=== PATIENT | female | born 1945 | race Caucasian/White ===

== ENCOUNTER 2016-10-05 09:47 | Emergency (ER) | payer MEDICARE, OTHER ==
--- NOTE | 2016-10-05 10:18 | ERPHSYRPT ---
- History of Present Illness Time Seen by Provider: 10/05/16 10:10 Source: patient, family Exam Limitations: no limitations Patient Subjective Stated Complaint: PT STATES THAT SHE WOKE THIS AM TO BAGINAL BLEEDING-BRIGHT RED IN NATURE-PT DENIES PAIN-DENIES DIFFICULTY WITH URINATION OR BOWELS-DENIES ABD PAIN-PT HAS HAD FULL HYSTERECTOMY Triage Nursing Assessment: PT PALE WARM ET DRY-A & O X 3-DENIES DIZZINESS-RESP NONLABORED-ABD SOFT ET NONTENDER TO PALP-BOWEL SOUNDS PRESENT Physician History: patient felt well when got up this am; went to the bathroom and noted a large amount of red blood in the stool; no pain; no prior hx; otherwise healthy; no other complaints; no blood in BM or urine to her knowledge Timing/Duration: today, hour(s) (1) Activites at Onset: other (using the bathroom) Quality: other (none) Onset Location: other (none) Pain Radiation: none Severity of Pain-Max: none Severity of Pain-Current: none Prior abdominal problems: none Sexual intercourse history: non-contributory Modifying Factors: Improves With: urinating Associated Symptoms: denies symptoms Allergies/Adverse Reactions: No Known Drug Allergies Allergy (Verified 10/05/16 10:04) Home Medications: Aspirin EC 81 mg [Ecotrin 81 mg] 81 mg PO DAILY 10/09/12 [History] Insulin Glargine,Hum.rec.anlog [Lantus] 12 unit SQ BID 10/09/12 [History] Metformin HCl 500 mg [Glucophage 500 MG] 500 mg PO BID 10/09/12 [History] Naproxen 500 mg PO BID 10/09/12 [History] Potassium Chloride 10 Meq Tab* [Klor Con 10 MEQ] 10 meq PO BID 10/09/12 [History ] Pravastatin Sodium 20 mg PO HS 10/09/12 [History] Glimepiride 4 mg [Amaryl 4 mg] 4 mg PO DAILY 11/12/14 [History] Hydrochlorothiazide 25 mg [hydroDIURIL 25 MG] 25 mg PO DAILY 11/12/14 [ History] Omeprazole 20 MG [Prilosec 20 mg] 20 mg PO DAILY 11/12/14 [History] Insulin Regular, Human [Novolin R] 10 unit IJ UD 09/20/15 [History] Hx Tetanus, Diphtheria Vaccination/Date Given: Yes Hx Influenza Vaccination/Date Given: Yes Hx Pneumococcal Vaccination/Date Given: Yes - Review of Systems Constitutional: No Symptoms Eyes: No Symptoms Ears, Nose, & Throat: No Symptoms Respiratory: No Cough, No Dyspnea, No Wheezing Cardiac: No Chest Pain, No Palpitations, No Syncope Abdominal/Gastrointestinal: No Abdominal Pain, No Nausea, No Vomiting, No Diarrhea, No Hematemesis, No Hematochezia, No Melena Genitourinary Symptoms: Vaginal Bleeding, No Dysuria, No Frequency, No Hematuria , No Urgency, No Urinary Retention, No Flank Pain Musculoskeletal: No Symptoms Skin: No Symptoms Neurological: No Symptoms Psychological: No Symptoms Endocrine: No Symptoms Hematologic/Lymphatic: No Symptoms Immunological/Allergic: No Symptoms - Past Medical History Pertinent Past Medical History: Yes Neurological History: No Pertinent History ENT History: No Pertinent History Cardiac History: No Pertinent History Respiratory History: No Pertinent History Endocrine Medical History: Diabetes Type II Musculoskeletal History: No Pertinent History GI Medical History: GERD History: No Pertinent History Psycho-Social History: No Pertinent History Female Reproductive Disorders: Abnormal Uterine Bleeding, Breast Cancer, Cervical Cancer, Other Other Medical History: BREAST CA, UTERINE CA - Past Surgical History Past Surgical History: Yes Neuro Surgical History: No Pertinent History Cardiac: No Pertinent History Respiratory: No Pertinent History Gastrointestinal: No Pertinent History, Hernia Repair Genitourinary: No Pertinent History Musculoskeletal: Orthopedic Surgery Female Surgical History: Lumpectomy, Hysterectomy Other Surgical History: tonsils as a child,left knee replacement. skin cancer removal to face, left thigh and back - Social History Smoking Status: Never smoker Exposure to second hand smoke: No Alcohol Use: None Drug Use: none Patient Lives Alone: No Significant Family History: no pertinent family hx - Nursing Vital Signs Nursing Vital Signs: Initial Vital Signs Temperature 98.6 F Temperature Source Oral Pulse Rate 79 Respiratory Rate 20 Blood Pressure [Right Arm] 175/76 Pain Intensity 0 - Physical Exam General Appearance: mild distress, alert, obese Eye Exam: PERRL/EOMI, eyes nml inspection, No photophobia Ears, Nose, Throat Exam: normal ENT inspection, TMs normal, pharynx normal, moist mucous membranes Neck Exam: normal inspection, non-tender, supple, full range of motion, No meningismus, No JVD Respiratory Exam: normal breath sounds, lungs clear, airway intact, No chest tenderness, No respiratory distress, No crackles/rales, No rhonchi Cardiovascular Exam: regular rate/rhythm, normal heart sounds, normal peripheral pulses, capillary refill 2-3 sec, No murmur Gastrointestinal/Abdomen Exam: soft, normal bowel sounds, No tenderness, No mass , No guarding, No rebound, No organomegaly Pelvic Exam: normal external exam, other (no blood in the vaginal vault; one small area of cuff on left that was slightly inflammed and may have been bleeding source; no bleeding now; no masses), No adnexal mass, No mass, No cervical motion tenderness, No vaginal bleeding Rectal Exam: normal exam, normal rectal tone, other (soft stool present), No mass, No hemorrhoids, No blood Back Exam: normal inspection, normal range of motion, No CVA tenderness Extremity Exam: normal inspection, normal range of motion, pedal edema, No pelvis stable Neurologic Exam: alert, oriented x 3, cooperative, ground control approach technician II-XII nml as tested, normal mood/affect, nml cerebellar function, nml station & gait Skin Exam: normal color, warm, dry, No rash, No petechiae, No cyanosis SpO2 Interpretation: normal SpO2: 97 Oxygen Delivery: Room Air - Course Nursing assessment & vital signs reviewed: Yes Ordered Tests: Active Orders 24 hr Category Date Time Status Cath for Specimen-Straight STAT Care 10/05/16 10:13 Active IV Insertion STAT Care 10/05/16 10:13 Active NPO (ED) STAT Care 10/05/16 10:13 Active Pelvic Exam Assist STAT Care 10/05/16 10:13 Active Re-Check Vital Signs STAT Care 10/05/16 10:13 Active BMP Stat Lab 10/05/16 10:13 Completed CBC W DIFF Stat Lab 10/05/16 10:13 Completed Occult Blood,Stool Other Stat Lab 10/05/16 10:57 Completed PROTIME WITH INR Stat Lab 10/05/16 10:13 Completed UA W/ MICROSCOPIC Stat Lab 10/05/16 10:58 Completed Lab/Rad Data: Laboratory Result Diagrams 10/05/16 10:13 10/05/16 10:13 Laboratory Results 10/05/16 10/05/16 10/05/16 Range/Units 10:58 10:57 10:13 WBC (4.0-10.5) K/mm3 RBC (4.1-5.4) M/mm3 Hgb (12.0-16.0) gm/dl Hct (35-47) % MCV (78-100) fl MCH (26-32) pg MCHC (32-36) g/dl RDW (11.5-14.0) % Plt Count (150-450) K/mm3 MPV (6-9.5) fl Gran % (36.0-66.0) % Lymphocytes % (24.0-44.0) % Monocytes % (0.0-12.0) % Eosinophils % (0.00-5.0) % Basophils % (0.0-0.4) % Basophils # (0-0.4) INR 1.06 (0.8-3.0) Sodium (136-145) mEq/L Potassium (3.5-5.1) mEq/L Chloride (98-107) mEq/L Carbon Dioxide (21-32) mEq/L Anion Gap (5-15) MEQ/L BUN (9-20) mg/dL Creatinine (0.55-1.30) mg/dl Estimated GFR ML/MIN Glucose (70-110) MG/DL Calcium (8.5-10.1) mg/dL Ur Collection Type CATH Urine Color YELLOW (YELLOW) Urine Appearance CLEAR (CLEAR) Urine pH 5.0 (5-6) Ur Specific [place] 1.015 (1.005-1.025) Urine Protein NEGATIVE (Negative) Urine Glucose (UA) NEGATIVE (NEGATIVE) mg/dL Urine Ketones NEGATIVE (NEGATIVE) Urine Nitrite NEGATIVE (NEGATIVE) Urine Bilirubin NEGATIVE (NEGATIVE) Urine Urobilinogen 1 (0-1) mg/dL Urine WBC (Auto) NEGATIVE (NEGATIVE) Urine RBC (Auto) TRACE HEMOLYZED (0-5) Malvin/ul Urine Microscopic RBC 0-2 (0-2) /HPF Urine Microscopic WBC 0-2 (0-5) /HPF Ur Epithelial Cells FEW (FEW) /HPF Urine Bacteria FEW (NEGATIVE) /HPF Stool Occult Blood NEGATIVE (Negative) Specimen Received 10/05 109910/05/16 10/05/16 Range/Units 10:13 10:13 WBC 6.4 (4.0-10.5) K/mm3 RBC 4.49 (4.1-5.4) M/mm3 Hgb 12.4 (12.0-16.0) gm/dl Hct 38.7 (35-47) % MCV 86.2 (78-100) fl MCH 27.6 (26-32) pg MCHC 32.0 (32-36) g/dl RDW 14.9 H (11.5-14.0) % Plt Count 130 L (150-450) K/mm3 MPV 13.3 H (6-9.5) fl Gran % 65.6 (36.0-66.0) % Lymphocytes % 22.6 L (24.0-44.0) % Monocytes % 6.3 (0.0-12.0) % Eosinophils % 4.9 (0.00-5.0) % Basophils % 0.6 (0.0-0.4) % Basophils # 0.04 (0-0.4) INR (0.8-3.0) Sodium 140 (136-145) mEq/L Potassium 4.0 (3.5-5.1) mEq/L Chloride 102 (98-107) mEq/L Carbon Dioxide 24.7 (21-32) mEq/L Anion Gap 16.9 H (5-15) MEQ/L BUN 26 H (9-20) mg/dL Creatinine 1.16 (0.55-1.30) mg/dl Estimated GFR 49 ML/MIN Glucose 142 H (70-110) MG/DL Calcium 8.9 (8.5-10.1) mg/dL Ur Collection Type Urine Color (YELLOW) Urine Appearance (CLEAR) Urine pH (5-6) Ur Specific [place] (1.005-1.025) Urine Protein (Negative) Urine Glucose (UA) (NEGATIVE) mg/dL Urine Ketones (NEGATIVE) Urine Nitrite (NEGATIVE) Urine Bilirubin (NEGATIVE) Urine Urobilinogen (0-1) mg/dL Urine WBC (Auto) (NEGATIVE) Urine RBC (Auto) (0-5) Malvin/ul Urine Microscopic RBC (0-2) /HPF Urine Microscopic WBC (0-5) /HPF Ur Epithelial Cells (FEW) /HPF Urine Bacteria (NEGATIVE) /HPF Stool Occult Blood (Negative) Specimen Received reviewed - Progress Progress: improved, re-examined Air Movement: good Progress Note: 10/05/16 10:52 pelvic and rectal exam did not reveal bleeding source; cath urine neg for gross blood; labs pending; family at bedside 10/05/16 10:59 patient tolerated pelvic ok; cbc and lyts and INR wnl 10/05/16 11:16 stool hem neg; cath urine clear;no gross blood; patient rechecked and no new bleeding; Dr Gomez, her IGNITION EXPERT doctor consulted adn will see in follow up next week; patient and family notified of results and treatment plan; instructions given; other labs ok Blood Culture(s) Obtained: No Antibiotics given: No Discussed with Dr.: Other (Dr Louis Gomez, senior it engineer consulted and will see in the office next week) Will see patient in: office Counseled pt/family regarding: lab results, diagnosis, need for follow-up - Departure Time of Disposition: 11:18 Departure Disposition: Home Clinical Impression: Vaginal bleeding, abnormal Condition: Stable Critical Care Time: No Referrals: FRANNIE CAMPOVERDE [Primary Care Provider] - Additional Instructions: continue home meds; follow up Dr Louis Goemz in office next week for reheck Follow-up with family doctor as directed. Call for appointment. Return if any problems. If you smoke please stop. Call or follow up with your family doctor for assistance if you need it to stop. Please wear your seatbelt when driving. Have a nice day. Thank you for allowing us to participate in your care today. :o) Dr Geraldo Roberts
[2016-10-05 10:32] LABS: BASOPHIL % 0.6 % (0.0-0.4); Eosinophil % 4.9 % (0.00-5.0); Granulocytes % 65.6 % (36.0-66.0); Lymphocytes % 22.6 % (24.0-44.0); Mean Cell Volume 86.2 fl (78-100); Mean Corpuscular Hemoglobin 27.6 pg (26-32); Mean Platelet Volume 13.3 fl (6-9.5); Monocytes % 6.3 % (0.0-12.0); Platelet Count 130 K/mm3 (150-450); Red Blood Count 4.49 M/mm3 (4.1-5.4); Red Cell Distribution Width 14.9 % (11.5-14.0); White Blood Count 6.4 K/mm3 (4.0-10.5)
[2016-10-05 10:43] LABS: INR 1.06 (0.8-3.0); PROTIME 11.8 SECONDS (9.95-12.35)
[2016-10-05 10:44] LABS: ANION GAP 16.9 MEQ/L (5-15); Carbon Dioxide 24.7 mEq/L (21-32)
[2016-10-05 11:07] VITALS: BP 175/76; PULSE 79
[2016-10-05 11:12] LABS: COMPLETE URINE MICROSCOPIC? YES; Collection Type CATH
[2016-10-05 11:14] LABS: Bacteria FEW /HPF (NEGATIVE); Epithelial Cells FEW /HPF (FEW); WBC 0-2 /HPF (0-5)
[2016-10-05 11:20] VITALS: O2SAT 97
== END 2016-10-05 11:28 | disposition home or self-care (01) ==
LOC: ED 09:47
DX: N93.9 Abnormal uterine and vaginal bleeding, unspecified (principal); E11.9 Type 2 diabetes mellitus without complications; Z79.84 Long term (current) use of oral hypoglycemic drugs; Z79.4 Long term (current) use of insulin
CPT/HCPCS: 99284; 36000; 81000; 85610; 36415; 82272; 85025; 80048; P9612; 99283

== ENCOUNTER 2016-12-21 13:35 | Emergency (ER) | payer MEDICARE, OTHER ==
[2016-12-21 14:00] VITALS: O2SAT 99
[2016-12-21] MEDS ORDERED: Zofran 4 MG/2 ML VIAL IV ONE (14:21)
--- NOTE | 2016-12-21 14:25 | ERPHSYRPT ---
- History of Present Illness Time Seen by Provider: 12/21/16 14:19 Source: patient Exam Limitations: no limitations Patient Subjective Stated Complaint: pt states this morning she became dizzy with nausea and vomiting. dizziness worse when she moves. Triage Nursing Assessment: pt flushed, warm, dry. pt pupils perrl. pt needed assistance transfering to bed. Physician History: The patient is a 71-year-old female with her family complaining of dizziness when she turns her head to the right. She woke up with this this morning. She has tried to do other things like take a shower to relieve this but it hasn't. She said when she turns her head to the right she feels like the room is spinning. She has been nauseated and has vomited once. She has never had anything like this before. Her past medical history is significant for breast cancer, hypertension, hyperlipidemia, diabetes, and arthritis. Timing/Duration: today Severity: severe Character of Deficits: other (dizziness) Deficits: no difficulties Baseline/Normal Cognition: alert oriented x 3 Current Cognition: alert oriented x 3 Baseline Gait: walks w/o assistance Associated Symptoms: vomiting, other (dizziness) Allergies/Adverse Reactions: No Known Drug Allergies Allergy (Verified 12/21/16 14:00) Home Medications: Aspirin EC 81 mg [Ecotrin 81 mg] 81 mg PO DAILY 10/09/12 [History] Metformin HCl 500 mg [Glucophage 500 MG] 500 mg PO BID 10/09/12 [History] Naproxen 500 mg PO BID 10/09/12 [History] Potassium Chloride 10 Meq Tab* [Klor Con 10 MEQ] 10 meq PO BID 10/09/12 [History ] Pravastatin Sodium 20 mg PO HS 10/09/12 [History] Glimepiride 4 mg [Amaryl 4 mg] 4 mg PO DAILY 11/12/14 [History] Hydrochlorothiazide 25 mg [hydroDIURIL 25 MG] 25 mg PO DAILY 11/12/14 [ History] Omeprazole 20 MG [Prilosec 20 mg] 20 mg PO DAILY 11/12/14 [History] Insulin Regular, Human [Novolin R] 10 unit IJ UD 09/20/15 [History] Hx Tetanus, Diphtheria Vaccination/Date Given: Yes (up to date) Hx Influenza Vaccination/Date Given: Yes Hx Pneumococcal Vaccination/Date Given: Yes Immunizations Up to Date: Yes - Review of Systems Constitutional: No Fever, No Chills Eyes: No Symptoms Ears, Nose, & Throat: No Symptoms Respiratory: No Cough, No Dyspnea Cardiac: No Chest Pain, No Edema, No Syncope Abdominal/Gastrointestinal: Nausea, Vomiting Genitourinary Symptoms: No Dysuria Musculoskeletal: No Back Pain, No Neck Pain Skin: No Rash Neurological: Dizziness Psychological: No Symptoms Endocrine: No Symptoms Hematologic/Lymphatic: No Symptoms Immunological/Allergic: No Symptoms All Other Systems: Reviewed and Negative - Past Medical History Pertinent Past Medical History: Yes Neurological History: No Pertinent History ENT History: No Pertinent History Cardiac History: No Pertinent History Respiratory History: No Pertinent History Endocrine Medical History: Diabetes Type II Musculoskeletal History: No Pertinent History GI Medical History: GERD History: No Pertinent History Psycho-Social History: No Pertinent History Female Reproductive Disorders: Abnormal Uterine Bleeding, Breast Cancer, Cervical Cancer, Other Other Medical History: BREAST CA, UTERINE CA - Past Surgical History Past Surgical History: Yes Neuro Surgical History: No Pertinent History Cardiac: No Pertinent History Respiratory: No Pertinent History Gastrointestinal: No Pertinent History, Hernia Repair Genitourinary: No Pertinent History Musculoskeletal: Orthopedic Surgery Female Surgical History: Lumpectomy, Hysterectomy Other Surgical History: tonsils as a child,left knee replacement. skin cancer removal to face, left thigh and back - Social History Smoking Status: Never smoker Exposure to second hand smoke: No Alcohol Use: None Drug Use: none Patient Lives Alone: No Significant Family History: no pertinent family hx - Nursing Vital Signs Nursing Vital Signs: Initial Vital Signs Temperature 98.3 F Temperature Source Oral Pulse Rate 68 Respiratory Rate 18 Blood Pressure [Right Arm] 170/78 Pain Intensity 0 - [place] Coma Scale Best Eye Response (Irina): (4) open spontaneously Best Verbal Response ([place]): (5) oriented Best Motor Response ([place]): (6) obeys commands Irina Total: 15 - Physical Exam General Appearance: mild distress Eye Exam: bilateral eye: normal inspection, other (With the patient sitting upright she has no nausea, the room is not spinning, and there is no nystagmus. Quickly moving the patient from a seated position to the supine position and having her quickly turn her head to the right, the patient experiences severe dizziness with mild horizontal nystagmus. Bringing the patient back to the upright position with the head straightforward, the dizziness resolves. The same maneuver from the upright seated position to prone but moving the head to the left does not reproduce any of the dizziness.) Ears, Nose, Throat Exam: normal ENT inspection, moist mucous membranes Neck Exam: normal inspection, non-tender, supple Respiratory: normal breath sounds, lungs clear, airway intact, No respiratory distress Cardiovascular: regular rate/rhythm, No edema Gastrointestinal: soft, No tenderness, No distention Pelvic Exam: not done Rectal Exam: not done Back Exam: normal inspection Extremity Exam: normal inspection, No pedal edema Mental Status: alert, oriented x 3 data steward Exam: tongue midline Coordination/Gait: normal finger to nose, normal gait Motor/Sensory: no motor deficit, no sensory deficit Skin Exam: normal color, warm, dry, No rash SpO2 Interpretation: normal SpO2: 99 Oxygen Delivery: Room Air - Course EKG Interpreted by Me: RATE, Sinus Rhythm, NORMAL AXIS, NORMAL INTERVALS, NORMAL QRS, NORMAL ST-T, Other (No change comared to EKG 08/22/15.) Ordered Tests: Active Orders 24 hr Category Date Time Status Cervical Collar Application STAT Care 12/21/16 15:11 Active EKG-ER Only STAT Care 12/21/16 14:24 Active IV Insertion STAT Care 12/21/16 14:22 Active BMP Stat Lab 12/21/16 14:22 Completed CBC W DIFF Stat Lab 12/21/16 14:22 Completed Medication Summary Discontinued Medications Generic Name Dose Route Start Last Admin Trade Name Elba PRN Reason Stop Dose Admin Sodium Chloride 500 mls @ 999 mls/hr 12/21/16 14:22 12/21/16 14:28 Sodium Chloride 0.9% 1000 Ml IV 12/21/16 14:52 999 mls/hr .Q31M STA Administration Sodium Chloride Confirm 12/21/16 14:27 Sodium Chloride 0.9% 1000 Ml Administered 12/21/16 14:28 Dose 1,000 mls @ ud .ROUTE .STK-MED ONE Ondansetron HCl 4 mg 12/21/16 14:21 12/21/16 14:28 Zofran 4 Mg/2 Ml Vial IV 12/21/16 14:22 4 mg STAT ONE Administration Ondansetron HCl Confirm 12/21/16 14:27 Zofran 4 Mg/2 Ml Vial Administered 12/21/16 14:28 Dose 4 mg .ROUTE .STK-MED ONE Lab/Rad Data: Laboratory Result Diagrams 12/21/16 14:22 12/21/16 14:22 Laboratory Results 12/21/16 12/21/16 Range/Units 14:22 14:22 WBC 5.6 (4.0-10.5) K/mm3 RBC 4.67 (4.1-5.4) M/mm3 Hgb 12.6 (12.0-16.0) gm/dl Hct 39.6 (35-47) % MCV 84.8 (78-100) fl MCH 27.0 (26-32) pg MCHC 31.8 L (32-36) g/dl RDW 14.5 H (11.5-14.0) % Plt Count 126 L (150-450) K/mm3 MPV 13.6 H (6-9.5) fl Gran % 69.5 H (36.0-66.0) % Lymphocytes % 19.2 L (24.0-44.0) % Monocytes % 5.2 (0.0-12.0) % Eosinophils % 5.4 H (0.00-5.0) % Basophils % 0.7 (0.0-0.4) % Basophils # 0.04 (0-0.4) Sodium 140 (136-145) mEq/L Potassium 4.5 (3.5-5.1) mEq/L Chloride 104 (98-107) mEq/L Carbon Dioxide 23.1 (21-32) mEq/L Anion Gap 17.1 H (5-15) MEQ/L BUN 24 H (9-20) mg/dL Creatinine 1.09 (0.55-1.30) mg/dl Estimated GFR 53 ML/MIN Glucose 130 H (70-110) MG/DL Calcium 9.3 (8.5-10.1) mg/dL - Progress Progress: improved Progress Note: 12/21/16 15:27 Physical therapy arrives and performs inappropriate maneuvers for BPPV. The patient now is feeling much better and has no dizziness. Counseled pt/family regarding: diagnosis - Departure Time of Disposition: 15:27 Departure Disposition: Home Clinical Impression: BPPV (benign paroxysmal positional vertigo) Condition: Stable Critical Care Time: No Additional Instructions: You had BPPV. This is benign paroxysmal positional vertigo. Physical therapy was able to do the appropriate maneuvers to alleviate the vertigo. Prescriptions: Ondansetron [Zofran Odt] 4 mg PO Q6HPRN PRN #10 tab.rapdis PRN Reason: Nausea/Vomiting
[2016-12-21] MEDS ORDERED: Sodium Chloride 0.9% 1000 ML 1,000 ML ONE (14:27)
[2016-12-21] MEDS ORDERED: Zofran 4 MG/2 ML VIAL ONE (14:27)
[2016-12-21 14:33] LABS: BASOPHIL % 0.7 % (0.0-0.4); Eosinophil % 5.4 % (0.00-5.0); Granulocytes % 69.5 % (36.0-66.0); Lymphocytes % 19.2 % (24.0-44.0); Mean Cell Volume 84.8 fl (78-100); Mean Platelet Volume 13.6 fl (6-9.5); Monocytes % 5.2 % (0.0-12.0); Platelet Count 126 K/mm3 (150-450); Red Blood Count 4.67 M/mm3 (4.1-5.4); Red Cell Distribution Width 14.5 % (11.5-14.0); White Blood Count 5.6 K/mm3 (4.0-10.5)
[2016-12-21 14:35] LABS: ANION GAP 17.1 MEQ/L (5-15); Carbon Dioxide 23.1 mEq/L (21-32); Potassium 4.5 mEq/L (3.5-5.1)
[2016-12-21 15:45] VITALS: BP 172/70; PULSE 74
== END 2016-12-21 15:46 | disposition home or self-care (01) ==
LOC: ED 13:35
DX: H81.10 Benign paroxysmal vertigo, unspecified ear (principal); R42 Dizziness and giddiness; R11.10 Vomiting, unspecified; E11.9 Type 2 diabetes mellitus without complications; Z79.4 Long term (current) use of insulin; Z79.82 Long term (current) use of aspirin; Z79.899 Other long term (current) drug therapy
CPT/HCPCS: 36000; 36415; 80048; 85025; 93005; 96360; 96374; 99285; J2405; L0120

== ENCOUNTER 2017-08-14 06:02 | Day surgery (SDC) | payer MEDICARE, OTHER ==
[~2017-08-14 06:02] MED LIST: Lactated Ringers 1,000 ML IV SCH
[2017-08-14] MEDS ORDERED: DIPRIVAN 200 MG/20 ML IV ONE (06:03)
[2017-08-14] MEDS ORDERED: Ketamine HCl 50 MG/ML IJ ONE (06:03)
--- NOTE | 2017-08-14 07:52 | OP ---
SURGERY DATE/TIME: 08/14/2017 0658 PREOPERATIVE DIAGNOSIS: Iron deficiency anemia. POSTOPERATIVE DIAGNOSIS: Moderate to severe gastritis. PROCEDURE: EGD. SURGEON: Salo Srinivasan M.D. ANESTHESIA: MAC by Anup Houser CRNA. ESTIMATED BLOOD LOSS: Minimal. SPECIMENS: Two cold forceps biopsies from greater curvature of the stomach from indistinct area of gastritis. DESCRIPTION OF PROCEDURE: After informed written consent was obtained, the patient was taken to the endoscopy suite. She underwent monitored anesthesia and a bite block was inserted. The endoscope was inserted into the posterior oropharynx and under direct visualization the esophagus was traversed. The esophageal mucosa appeared normal free of lesions or defects. The gastroesophageal junction likewise appeared normal upon entering the stomach. The stomach had a normal rugated gastric mucosa but there was indistinct moderate to severe gastritis throughout the entire greater curvature of the stomach with no obvious ulceration or focal area of involvement. The gastric antrum was inspected and was free of any overt ulcerations or defects. The pylorus was traversed and the first and second portions of the duodenum were within normal limits. Two cold forceps biopsies were taken from automotive sales representative areas of the greater curvature of the stomach. There was minimal bleeding following removal of these two biopsies. The scope was removed and upon withdrawal no other lesions were encountered. I have advised the patient to discontinue taking aspirin and naproxen at this time as these are both on her current medicine list. I have also increased her omeprazole to 20 mg twice daily while we await biopsy results and she will follow up in the office.
[2017-08-14 08:11] VITALS: O2SAT 98
[2017-08-14 08:27] VITALS: BP 171/71; PULSE 76
== END 2017-08-14 08:37 | disposition home or self-care (01) ==
LOC: SDC 06:02 → EDSTATUS 13:07
PROVIDERS: ATTEND Family Medicine
PROC: 0DB68ZX Excision of Stomach, Via Natural or Artificial Opening Endoscopic, Diagnostic (ICD-10-PCS; principal; 2017-08-14)
DX: K29.70 Gastritis, unspecified, without bleeding (principal); K21.9 Gastro-esophageal reflux disease without esophagitis; E11.9 Type 2 diabetes mellitus without complications; Z79.4 Long term (current) use of insulin; Z79.899 Other long term (current) drug therapy
CPT/HCPCS: 00740; 88305; 99100; J2704

== ENCOUNTER 2019-01-24 20:09 | Inpatient (IN) | payer MEDICARE, OTHER ==
[2019-01-24] MEDS ORDERED: PROTONIX 40 MG IV IV ONE ×2 (20:50→21:50)
[2019-01-24] MEDS ORDERED: MORPHINE SULFATE 4 MG INJ IV ONE (20:50)
[2019-01-24] MEDS ORDERED: Zofran 4 MG/2 ML VIAL IV ONE (20:50)
[2019-01-24] MEDS ORDERED: Pepcid 20 MG VIAL IV ONE ×2 (20:50→21:50)
--- NOTE | 2019-01-24 20:50 | ERPHSYRPT ---
- History of Present Illness Time Seen by Provider: 01/24/19 20:47 Historian: patient, family Exam Limitations: no limitations Patient Subjective Stated Complaint: pt is alert and oriented. pt comes in via wheelchair. pt states that she vomited earlier today and has severe mid- abdominal pain. pt is tender with palpation in her mid-abdomen. pt is firm in her mid-abdomen. pt states that she has a hernia in that spot. pt states that she has vomited just the once. pt bp is 219/115. pt denies dizzines, headache, blurry vision. pt skin is pwd. Triage Nursing Assessment: see above Physician History: pt with sudden onset of mid abd pain and prior ventral hernias repaired there , but no hernia felt on exam today - just tender; some vomiting Timing/Duration: today Activities at Onset: none Quality: sharpness, stabbing, throbbing Abdominal Pain Onset Location: other (mid abd) Pain Radiation: no radiation Severity of Pain-Max: moderate Severity of Pain-Current: moderate Modifying Factors: Improves With: nothing Associated Symptoms: nausea, vomiting Previous symptoms: no prior history Allergies/Adverse Reactions: No Known Drug Allergies Allergy (Verified 08/14/17 06:23) Home Medications: Metformin HCl 500 mg [Glucophage 500 MG] 500 mg PO BID 10/09/12 [History] Potassium Chloride 10 Meq Tab* [Klor Con 10 MEQ] 10 meq PO BID 10/09/12 [ History] Pravastatin Sodium 20 mg PO HS 10/09/12 [History] Hydrochlorothiazide 25 mg [hydroDIURIL 25 MG] 25 mg PO DAILY 11/12/14 [ History] Anastrozole [Arimidex] 1 mg PO HS 08/08/17 [History] Cyanocobalamin (Vitamin B-12) [Vitamin B-12] 1,000 mcg IM DIRECTIONS UNKNOWN 03/18 [History] Ferrous Sulfate [Iron] 325 mg PO DAILY 08/08/17 [History] Lisinopril 20 mg [Zestril 20 MG] 20 mg PO DAILY 08/08/17 [History] Hx Tetanus, Diphtheria Vaccination/Date Given: Yes (up to date) Hx Influenza Vaccination/Date Given: Yes Hx Pneumococcal Vaccination/Date Given: Yes Immunizations Up to Date: Yes - Review of Systems Constitutional: No Fever, No Chills Eyes: No Symptoms Ears, Nose, & Throat: No Symptoms Respiratory: No Cough, No Dyspnea Cardiac: No Chest Pain, No Edema, No Syncope Abdominal/Gastrointestinal: Abdominal Pain, Nausea, Vomiting, No Diarrhea Genitourinary Symptoms: No Dysuria Musculoskeletal: No Back Pain, No Neck Pain Skin: No Rash Neurological: No Dizziness, No Focal Weakness, No Sensory Changes Psychological: No Symptoms Endocrine: No Symptoms All Other Systems: Reviewed and Negative - Past Medical History Pertinent Past Medical History: Yes Neurological History: No Pertinent History ENT History: No Pertinent History Cardiac History: Hypertension Respiratory History: No Pertinent History Endocrine Medical History: Diabetes Type II Musculoskeletal History: No Pertinent History GI Medical History: GERD History: No Pertinent History Psycho-Social History: No Pertinent History Female Reproductive Disorders: Abnormal Uterine Bleeding, Breast Cancer, Cervical Cancer, Other Other Medical History: BREAST CA, UTERINE CA - Past Surgical History Past Surgical History: Yes Neuro Surgical History: No Pertinent History Cardiac: No Pertinent History Respiratory: No Pertinent History Gastrointestinal: No Pertinent History, Hernia Repair Genitourinary: No Pertinent History Musculoskeletal: Orthopedic Surgery Female Surgical History: Lumpectomy, Hysterectomy Other Surgical History: tonsils as a child, left and right knee replacement. skin cancer removal to face, left thigh and back,left breast lumpectomy w/ radiation following, uterine cancer w/hyster., Confirms no lymph nodes removed - Social History Smoking Status: Never smoker Exposure to second hand smoke: No Alcohol Use: None Drug Use: none Patient Lives Alone: No Significant Family History: no pertinent family hx - Female History Hx Now: No - Nursing Vital Signs Nursing Vital Signs: Initial Vital Signs Temperature 98.2 F 01/24/19 20:29 Pulse Rate 80 01/24/19 20:29 Respiratory Rate 16 01/24/19 20:29 Blood Pressure 219/115 01/24/19 20:29 O2 Sat by Pulse Oximetry 98 01/24/19 20:29 Pain Scale Pain Intensity 9 - Physical Exam General Appearance: no apparent distress, alert Eye Exam: PERRL/EOMI, eyes nml inspection Ears, Nose, Throat Exam: normal ENT inspection, pharynx normal, moist mucous membranes Neck Exam: normal inspection, non-tender, supple, full range of motion Respiratory Exam: normal breath sounds, lungs clear, No respiratory distress Cardiovascular Exam: regular rate/rhythm, normal heart sounds Gastrointestinal/Abdomen Exam: soft, No tenderness, No mass Pelvic Exam: deferred Rectal Exam: deferred Back Exam: normal inspection, normal range of motion, No CVA tenderness, No vertebral tenderness Extremity Exam: normal inspection, normal range of motion, pelvis stable Neurologic Exam: alert, oriented x 3, cooperative, normal mood/affect, nml cerebellar function, sensation nml, No motor deficits Skin Exam: normal color, warm, dry SpO2 Interpretation: normal SpO2: 98 O2 Delivery: Room Air - Course Nursing assessment & vital signs reviewed: Yes EKG Interpreted by Me: Sinus Rhythm, NORMAL AXIS, Non-specific ST Changes - CT Exams Abdomen/Pelvis CT Interpretation: Discussed w/radiologist, Tele-radiologist Report, Other ( dilated bowel and hernias not incarcerated but concern for richters) Ordered Tests: Active Orders 24 hr Category Date Time Status EKG-ER Only STAT Care 01/24/19 20:50 Active IV Insertion STAT Care 01/24/19 20:50 Active NPO (ED) STAT Care 01/24/19 20:50 Active ABDOMEN AND PELVIS W/0 CONTRAS [CT] Stat Exams 01/24/19 20:50 Taken AMYLASE Stat Lab 01/24/19 21:01 Completed CBC W DIFF Stat Lab 01/24/19 21:01 Completed CMP Stat Lab 01/24/19 21:01 Completed LIPASE Stat Lab 01/24/19 21:01 Completed Lactic Acid Stat Lab 01/24/19 21:42 Completed Lactic Acid Stat Lab 01/24/19 23:48 Ordered TROPONIN Q3H Lab 01/24/19 21:01 Completed TROPONIN Q3H Lab 01/25/19 00:00 Ordered TROPONIN Q3H Lab 01/25/19 03:00 Ordered TROPONIN Q3H Lab 01/25/19 06:00 Ordered TROPONIN Q3H Lab 01/25/19 09:00 Ordered UA W/RFX UR CULTURE Stat Lab 01/24/19 23:05 Completed Medication Summary Generic Name Dose Route Start Last Admin Trade Name Freq PRN Reason Stop Dose Admin Sodium Chloride 1,000 mls @ 100 mls/hr 01/24/19 21:00 01/24/19 21:57 Sodium Chloride 0.9% 1000 Ml IV 02/23/19 20:59 100 mls/hr .Q10H LEIDY Administration Discontinued Medications Generic Name Dose Route Start Last Admin Trade Name Freq PRN Reason Stop Dose Admin Famotidine 20 mg 01/24/19 20:50 01/24/19 21:52 Pepcid 20 Mg Vial IV 01/24/19 20:51 20 mg STAT ONE Administration Famotidine Confirm 01/24/19 21:50 Pepcid 20 Mg Vial Administered 01/24/19 21:51 Dose 20 mg IV .STK-MED ONE Hydromorphone HCl 1 mg 01/24/19 23:53 Hydromorphone 1 Mg/Ml Ampule IV 01/24/19 23:54 STAT ONE Hydromorphone HCl Confirm 01/24/19 23:56 Hydromorphone 1 Mg/Ml Ampule Administered 01/24/19 23:57 Dose 1 mg .ROUTE .STK-MED ONE Morphine Sulfate 4 mg 01/24/19 20:50 01/24/19 21:53 Morphine Sulfate 4 Mg Inj IV 01/24/19 20:51 4 mg STAT ONE Administration Morphine Sulfate Confirm 01/24/19 21:50 Morphine Sulfate 4 Mg Inj Administered 01/24/19 21:51 Dose 4 mg .ROUTE .STK-MED ONE Ondansetron HCl 4 mg 01/24/19 20:50 01/24/19 21:52 Zofran 4 Mg/2 Ml Vial IV 01/24/19 20:51 4 mg STAT ONE Administration Ondansetron HCl Confirm 01/24/19 21:50 Zofran 4 Mg/2 Ml Vial Administered 01/24/19 21:51 Dose 4 mg .ROUTE .STK-MED ONE Ondansetron HCl Confirm 01/24/19 23:49 Zofran 4 Mg/2 Ml Vial Administered 01/24/19 23:50 Dose 4 mg .ROUTE .STK-MED ONE Ondansetron HCl 4 mg 01/25/19 00:00 Zofran 4 Mg/2 Ml Vial IV 01/25/19 00:01 STAT ONE Pantoprazole Sodium 40 mg 01/24/19 20:50 01/24/19 21:53 Protonix 40 Mg Iv IV 01/24/19 20:51 40 mg STAT ONE Administration Pantoprazole Sodium Confirm 01/24/19 21:50 Protonix 40 Mg Iv Administered 01/24/19 21:51 Dose 40 mg IV .STK-MED ONE Promethazine HCl 25 mg 01/24/19 23:54 Phenergan 25 Mg Inj IM 01/24/19 23:55 STAT ONE Promethazine HCl Confirm 01/24/19 23:59 Phenergan 25 Mg Inj Administered 01/25/19 00:00 Dose 25 mg .ROUTE .STK-MED ONE Lab/Rad Data: Laboratory Result Diagrams 01/24/19 21:01 01/24/19 21:01 Laboratory Results 01/24/19 01/24/19 01/24/19 Range/Units 23:05 21:42 21:01 WBC (4.0-10.5) K/mm3 RBC (4.1-5.4) M/mm3 Hgb (12.0-16.0) gm/dl Hct (35-47) % MCV (78-100) fl MCH (26-32) pg MCHC (32-36) g/dl RDW (11.5-14.0) % Plt Count (150-450) K/mm3 MPV (6-9.5) fl Gran % (36.0-66.0) % Eos # (Auto) (0-0.5) Absolute Lymphs (auto) (1.0-4.6) Absolute Monos (auto) (0.0-1.3) Lymphocytes % (24.0-44.0) % Monocytes % (0.0-12.0) % Eosinophils % (0.00-5.0) % Basophils % (0.0-0.4) % Absolute Granulocytes (1.4-6.9) Basophils # (0-0.4) Sodium (137-145) mmol/L Potassium (3.5-5.1) mmol/L Chloride (98-107) mmol/L Carbon Dioxide (22-30) mmol/L Anion Gap (5-15) MEQ/L BUN (7-17) mg/dL Creatinine (0.52-1.04) mg/dL Estimated GFR ML/MIN Glucose (74-106) mg/dL Lactic Acid 2.2 H (0.4-2.0) Calcium (8.4-10.2) mg/dL Total Bilirubin (0.2-1.3) mg/dL AST (14-36) U/L ALT (0-35) U/L Alkaline Phosphatase (38-126) U/L Troponin I < 0.012 (0.000-0.034) ng/mL Serum Total Protein (6.3-8.2) g/dL Albumin (3.5-5.0) g/dL Amylase (30-110) U/L Lipase (23-300) U/L Urine Color YELLOW (YELLOW) Urine Appearance SLIGHTLY CLOUDY (CLEAR) Urine pH 5.0 (5-6) Ur Specific [place] 1.015 (1.005-1.025) Urine Protein NEGATIVE (Negative) Urine Ketones TRACE (NEGATIVE) Urine Blood NEGATIVE (0-5) Malvin/ul Urine Nitrite NEGATIVE (NEGATIVE) Urine Bilirubin NEGATIVE (NEGATIVE) Urine Urobilinogen NEGATIVE (0-1) mg/dL Ur Leukocyte Esterase TRACE (NEGATIVE) Urine WBC (Auto) 0-2 (0-5) /HPF Urine RBC (Auto) NONE (0-2) /HPF U Epithel Cells (Auto) NONE (FEW) /HPF Urine Bacteria (Auto) NONE (NEGATIVE) /HPF Urine Mucus (Auto) SLIGHT (NEGATIVE) /HPF Urine Culture Reflexed NO (NO) Urine Glucose NEGATIVE (NEGATIVE) mg/dL 01/24/19 01/24/19 Range/Units 21:01 21:01 WBC 10.5 (4.0-10.5) K/mm3 RBC 5.00 (4.1-5.4) M/mm3 Hgb 14.0 (12.0-16.0) gm/dl Hct 43.2 (35-47) % MCV 86.4 (78-100) fl MCH 28.0 (26-32) pg MCHC 32.4 (32-36) g/dl RDW 14.2 H (11.5-14.0) % Plt Count 152 (150-450) K/mm3 MPV 13.1 H (6-9.5) fl Gran % 80.4 H (36.0-66.0) % Eos # (Auto) 0.34 (0-0.5) Absolute Lymphs (auto) 1.22 (1.0-4.6) Absolute Monos (auto) 0.47 (0.0-1.3) Lymphocytes % 11.6 L (24.0-44.0) % Monocytes % 4.5 (0.0-12.0) % Eosinophils % 3.2 (0.00-5.0) % Basophils % 0.3 (0.0-0.4) % Absolute Granulocytes 8.45 H (1.4-6.9) Basophils # 0.03 (0-0.4) Sodium 142 (137-145) mmol/L Potassium 4.2 (3.5-5.1) mmol/L Chloride 105 (98-107) mmol/L Carbon Dioxide 24 (22-30) mmol/L Anion Gap 18.4 H (5-15) MEQ/L BUN 27 H (7-17) mg/dL Creatinine 1.19 H (0.52-1.04) mg/dL Estimated GFR 47.3 ML/MIN Glucose 131 H (74-106) mg/dL Lactic Acid (0.4-2.0) Calcium 10.2 (8.4-10.2) mg/dL Total Bilirubin 0.50 (0.2-1.3) mg/dL AST 28 (14-36) U/L ALT 21 (0-35) U/L Alkaline Phosphatase 92 (38-126) U/L Troponin I (0.000-0.034) ng/mL Serum Total Protein 8.2 (6.3-8.2) g/dL Albumin 4.3 (3.5-5.0) g/dL Amylase 104 (30-110) U/L Lipase 119 (23-300) U/L Urine Color (YELLOW) Urine Appearance (CLEAR) Urine pH (5-6) Ur Specific [place] (1.005-1.025) Urine Protein (Negative) Urine Ketones (NEGATIVE) Urine Blood (0-5) Malvin/ul Urine Nitrite (NEGATIVE) Urine Bilirubin (NEGATIVE) Urine Urobilinogen (0-1) mg/dL Ur Leukocyte Esterase (NEGATIVE) Urine WBC (Auto) (0-5) /HPF Urine RBC (Auto) (0-2) /HPF U Epithel Cells (Auto) (FEW) /HPF Urine Bacteria (Auto) (NEGATIVE) /HPF Urine Mucus (Auto) (NEGATIVE) /HPF Urine Culture Reflexed (NO) Urine Glucose (NEGATIVE) mg/dL - Progress Progress: improved, re-examined Progress Note: 01/25/19 00:26 discussed with radiologist, family , pt and Dr. austin and all agree best to admit pt for obs and consult with surgeon - surgeon - dr austin requests NG and to hold antibiotics for now also discussed with Dr. Navarro resolution manager and will place on tele due to previous CAD. Discussed with : Carina Navarro Will see patient in: hospital (observation) Counseled pt/family regarding: lab results, diagnosis, need for follow-up, rad results - Departure Departure Disposition: Observation Clinical Impression: Ventral hernia, Abdominal pain, enteritis vs partial bowel obstruction o Condition: Good Critical Care Time: No Referrals: FRANNIE CAMPOVERDE [Primary Care Provider] -
[2019-01-24 21:04] LABS: BASOPHIL % 0.3 % (0.0-0.4); Basophil (Absolute #) 0.03 (0-0.4); Eosinophil % 3.2 % (0.00-5.0); Eosinophil (Absolute #) 0.34 (0-0.5); Granulocyte Absolute (ANC) 8.45 (1.4-6.9); Granulocytes % 80.4 % (36.0-66.0); Hematocrit 43.2 % (35-47); Lymphocyte (Absolute #) 1.22 (1.0-4.6); Lymphocytes % 11.6 % (24.0-44.0); Mean Cell Volume 86.4 fl (78-100); Mean Corpuscular Hgb Concent. 32.4 g/dl (32-36); Mean Platelet Volume 13.1 fl (6-9.5); Monocyte (Absolute #) 0.47 (0.0-1.3); Monocytes % 4.5 % (0.0-12.0); Platelet Count 152 K/mm3 (150-450); Red Cell Distribution Width 14.2 % (11.5-14.0); White Blood Count 10.5 K/mm3 (4.0-10.5)
[2019-01-24 21:16] LABS: ALBUMIN 4.3 g/dL (3.5-5.0); ANION GAP 18.4 MEQ/L (5-15); BILIRUBIN,TOTAL 0.5 mg/dL (0.2-1.3); Calcium 10.2 mg/dL (8.4-10.2); Creatinine 1 1.19 mg/dL (0.52-1.04); Potassium 4.2 mmol/L (3.5-5.1); Total Protein 8.2 g/dL (6.3-8.2)
[2019-01-24 21:49] LABS: Lactic Acid 2.2 (0.4-2.0)
[2019-01-24] MEDS ORDERED: Zofran 4 MG/2 ML VIAL ONE ×2 (21:50→23:49)
[2019-01-24] MEDS ORDERED: MORPHINE SULFATE 4 MG INJ ONE (21:50)
[2019-01-24] MEDS: Sodium Chloride 0.9% 1000 ML 1,000 ML IV SCH (21:57)
[2019-01-24 23:09] LABS: Appearance SLIGHTLY CLOUDY (CLEAR); Bilirubin NEGATIVE (NEGATIVE); Blood NEGATIVE Ery/ul (0-5); Glucose NEGATIVE (NEGATIVE); Ketones TRACE (NEGATIVE); Leukocyte Esterase TRACE (NEGATIVE); Mucus SLIGHT /HPF (NEGATIVE); Nitrite NEGATIVE (NEGATIVE); Protein,Urine Dip NEGATIVE (Negative); Specific Gravity 1.015 (1.005-1.025); Urobilinogen NEGATIVE mg/dL (0-1); WBC 0-2 /HPF (0-5)
[2019-01-24] MEDS ORDERED: Hydromorphone 1 mg/ml Ampule IV ONE (23:53)
[2019-01-24] MEDS ORDERED: Phenergan 25 MG INJ IM ONE (23:54)
[2019-01-24] MEDS ORDERED: Hydromorphone 1 mg/ml Ampule ONE (23:56)
[2019-01-24] MEDS ORDERED: Phenergan 25 MG INJ ONE (23:59)
[2019-01-25] MEDS ORDERED: Zofran 4 MG/2 ML VIAL IV ONE
[2019-01-25] MEDS ORDERED: Zofran 4 MG/2 ML VIAL IV PRN (03:44)
[2019-01-25] MEDS ORDERED: NovoLIN R SQ PRN (03:44)
[2019-01-25] MEDS ORDERED: Phenergan 25 MG INJ IM PRN (03:44)
[2019-01-25] MEDS ORDERED: DILAUDID 2 MG INJECTION IV PRN ×2 (03:44→13:16)
[2019-01-25 05:41] LABS: BASOPHIL % 0.2 % (0.0-0.4); Basophil (Absolute #) 0.03 (0-0.4); Eosinophil % 0.6 % (0.00-5.0); Eosinophil (Absolute #) 0.07 (0-0.5); Granulocyte Absolute (ANC) 11.32 (1.4-6.9); Granulocytes % 91.4 % (36.0-66.0); Hematocrit 38.8 % (35-47); Hemoglobin 12.6 gm/dl (12.0-16.0); Lymphocyte (Absolute #) 0.68 (1.0-4.6); Lymphocytes % 5.5 % (24.0-44.0); Mean Cell Volume 87.4 fl (78-100); Mean Corpuscular Hemoglobin 28.4 pg (26-32); Mean Corpuscular Hgb Concent. 32.5 g/dl (32-36); Monocyte (Absolute #) 0.29 (0.0-1.3); Monocytes % 2.3 % (0.0-12.0); Platelet Count 127 K/mm3 (150-450); Red Blood Count 4.44 M/mm3 (4.1-5.4); White Blood Count 12.4 K/mm3 (4.0-10.5)
[2019-01-25 05:57] LABS: ALBUMIN 3.7 g/dL (3.5-5.0); Calcium 9.2 mg/dL (8.4-10.2)
[2019-01-25 05:59] LABS: BILIRUBIN,TOTAL 0.5 mg/dL (0.2-1.3)
[2019-01-25 06:41] LABS: ANION GAP 15.7 MEQ/L (5-15); Creatinine 1 1.06 mg/dL (0.52-1.04); Potassium 4.4 mmol/L (3.5-5.1)
--- NOTE | 2019-01-25 07:28 | XRAY ---
Indication: Abdomen pain. Emesis. Multiple contiguous axial images obtained through the abdomen and pelvis without contrast as ordered. Comparison: November 14, 2017. Lung bases essentially clear. Heart is not enlarged. Stable small hiatal hernia. Noncontrasted stomach and bowel loops appear nonobstructed. Mid to lower abdomen demonstrates several mild fluid distended small bowel loops with synchronous fluid leveling, ileus versus enteritis. No free fluid/air. Moderately distended gallbladder again with a few gallstones. Liver again demonstrates micro-lobular margins favoring cirrhosis. Spleen is again enlarged today measuring 15.1 cm in greatest axial dimension. Previous mesenteric root lymph nodes reidentified grossly unchanged. Nonobstructing left renal micro-calculus obscured on previous contrast exam. Again hysterectomy. Remaining pancreas, adrenal glands, right kidney, right ureter, and bladder appear unremarkable for noncontrast exam. Minimal aortoiliac calcifications without AAA. Osseous structures intact again with mild degenerative changes throughout the spine and tiny right superior acetabular bone island. Impression: 1. Fluid distended small bowel loops with fluid leveling, ileus versus enteritis. 2. Distended gallbladder again with gallstones. Sonogram may yield further information. 3. Nonobstructing left renal micro-calculus. 4. Stable cirrhosis, splenomegaly, hiatal hernia, and prominent mesenteric root lymph nodes. Comment: Preliminary interpretation was made by [facility]. No critical discrepancy. CT DI 22.72
[2019-01-25] MEDS: Sodium Chloride 0.9% 1000 ML 1,000 ML IV SCH ×2 (07:46→17:24)
[2019-01-25] MEDS ORDERED: APRESOLINE 20 MG/ML INJ IV PRN (09:28)
[2019-01-25] MEDS ORDERED: DILAUDID 1 MG/1ML PCA IV PRN (09:29)
[2019-01-25] MEDS: Levofloxacin 500MG/100ML D5W 500 MG/100 ML BAG IV SCH (09:52)
[2019-01-25] MEDS: Pepcid 20 MG VIAL IV SCH ×2 (09:52→22:20)
[2019-01-25] MEDS ORDERED: Morphine PCA 1 MG/ML 30 ML IV PRN (10:00)
[2019-01-25] MEDS ORDERED: Narcan 0.4 MG/ML IV PRN (10:03)
[2019-01-25] MEDS: Zestril 20 MG PO SCH (11:08)
[2019-01-25] MEDS: FLAGYL 500 MG IVPB 500 MG/100 ML BAG IV SCH ×2 (13:27→22:25)
--- NOTE | 2019-01-25 22:08 | XRAY ---
Indication: Partial small bowel obstruction. Comparison: CT abdomen/pelvis 1 day earlier. 2 views of the abdomen again demonstrates a few air distended bowel loops with synchronous fluid leveling, ileus versus enteritis. No focal bowel dilatation, obstruction, or free air. Stable gallstones and splenomegaly. Osseous structures again demonstrates osteopenia and degenerative changes. Lung bases clear. Impression: Stable mild air distended bowel loops with fluid leveling, ileus versus enteritis. Stable gallstones and splenomegaly. Comment: Preliminary interpretation was made by [facility]. No discrepancy.
[2019-01-25] MEDS: PROTONIX 40 MG IV IV SCH (22:23)
[2019-01-26] MEDS: Sodium Chloride 0.9% 1000 ML 1,000 ML IV SCH ×2 (03:07→14:31)
[2019-01-26] MEDS: Sodium Chloride 0.9% 10 ML FLUSH Syringe IV SCH ×3 (05:53→21:41)
[2019-01-26] MEDS: FLAGYL 500 MG IVPB 500 MG/100 ML BAG IV SCH ×3 (05:53→21:40)
[2019-01-26 06:34] LABS: Hematocrit 34.7 % (35-47); Hemoglobin 11.2 gm/dl (12.0-16.0); Mean Cell Volume 88.7 fl (78-100); Mean Corpuscular Hemoglobin 28.6 pg (26-32); Mean Corpuscular Hgb Concent. 32.3 g/dl (32-36); Mean Platelet Volume 12.8 fl (6-9.5); Platelet Count 104 K/mm3 (150-450); Red Blood Count 3.91 M/mm3 (4.1-5.4); Red Cell Distribution Width 14.1 % (11.5-14.0); White Blood Count 5.7 K/mm3 (4.0-10.5)
[2019-01-26] MEDS: Levofloxacin 500MG/100ML D5W 500 MG/100 ML BAG IV SCH (10:50)
[2019-01-26] MEDS: Zestril 20 MG PO SCH (10:50)
[2019-01-26] MEDS: Pepcid 20 MG VIAL IV SCH ×2 (10:50→21:33)
--- NOTE | 2019-01-26 11:28 | PCM.NOTE ---
Date and Time: 01/26/19 1123 Subjective Assessment: Pt is denying abdominal pain. No nausea. Tolerating water in limited amounts but would very much like to try something else. Her last BM was the day of admission, but she has been passing flatus. - Review of Systems Constitutional: No Fever Abdominal/Gastrointestinal: No Abdominal Pain, No Nausea Objective Exam General Appearance: no apparent distress, alert, obese Neurologic Exam: oriented x 3, cooperative Skin Exam: normal color, warm, dry, No rash Ears, Nose, Throat Exam: moist mucous membranes Neck Exam: normal inspection Respiratory Exam: normal breath sounds, lungs clear, No crackles/rales, No rhonchi, No wheezing Cardiovascular Exam: regular rate/rhythm, normal heart sounds, No murmur Gastrointestinal/Abdomen Exam: soft, normal bowel sounds, tenderness ( generalized - worse in epigastrum, suprapubic, RUQ), No distention, No mass, No guarding, No rebound Extremity Exam: normal inspection, swelling (trace pretibial edema bilat) Back Exam: normal inspection, No rash OBJECTIVE DATA Vital Signs: Vital Signs - 24 hr Temp Pulse Resp BP Pulse Ox 01/26/19 07:33 98 F 80 18 180/86 96 01/26/19 04:20 98.2 F 63 16 164/72 96 01/26/19 00:23 98.4 F 63 18 167/72 97 01/25/19 22:33 97 01/25/19 20:18 98.1 F 66 20 140/67 97 01/25/19 15:52 98.6 F 66 20 173/74 97 Pain Assessment - Last Documented Pain Intensity 2 Pain Scale Used 0-10 Pain Scale Intake and Output: Intake & Output 01/23/19 01/24/19 01/25/19 01/26/19 11:59 11:59 11:59 11:59 Intake Total 0 4434 Output Total 1400 Balance 0 3034 Weight 84.5 kg 86 kg Lab Results: Accuchecks Date 01/26/19 Date 01/25/19 Date 01/25/19 Time 08:00 Time 16:09 Time 12:01 Accucheck Value: 89 Accucheck Value: 91 Accucheck Value: 96 Accucheck Value: 85 Accucheck Value: 140 Lab Results-Last 24 Hours 01/26/19 Range/Units 06:29 WBC 5.7 (4.0-10.5) K/mm3 RBC 3.91 L (4.1-5.4) M/mm3 Hgb 11.2 L (12.0-16.0) gm/dl Hct 34.7 L (35-47) % MCV 88.7 (78-100) fl MCH 28.6 (26-32) pg MCHC 32.3 (32-36) g/dl RDW 14.1 H (11.5-14.0) % Plt Count 104 L (150-450) K/mm3 MPV 12.8 H (6-9.5) fl Radiology Exams: Radiology Procedures Category Date Time Status ABDOMEN 2 VIEW DAILY Exams 01/25/19 08:00 Completed ABDOMEN AND PELVIS W/0 CONTRAS [CT] Stat Exams 01/24/19 20:50 Completed Multi-Disciplinary Progress Notes: Multi-Disciplinary Progress Notes 01/26/19 06:55 Respiratory Note by Nash Laguna PT NOT ON O2 AND NO NEED AT THIS TIME FOR SPOT CHECKS AND SO I CANCELLED THE ORDERS. Initialized on 01/26/19 06:55 - END OF NOTE Assessment/Plan (1) Enteritis Current Visit: Yes Status: Acute Assessment & Plan: On day #2 of flagyl and levaquin. Not having pain aside from some tenderness to palpation. Will see how she tolerates advancing the diet. May be able to d/ c tomorrow if tolerating po well and no increase in pain and no nausea/vomiting. Surgery signed off on the patient. Code(s): K52.9 - NONINFECTIVE GASTROENTERITIS AND COLITIS, UNSPECIFIED (2) Diabetes mellitus Current Visit: No Status: Chronic Qualifiers: Diabetes mellitus type: type 2 Diabetes mellitus nursing home insulin use: without nursing home use Diabetes mellitus complication status: without complication Qualified Code(s): E11.9 - Type 2 diabetes mellitus without complications Code(s): E11.9 - TYPE 2 DIABETES MELLITUS WITHOUT COMPLICATIONS (3) HTN (hypertension) Current Visit: No Status: Chronic Qualifiers: Hypertension type: essential hypertension Qualified Code(s): I10 - Essential (primary) hypertension Assessment & Plan: some increase in bp here - on lisinopril and has apresoline prn. Will watch today; may need to add med tomorrow if continues to be elevated. Code(s): I10 - ESSENTIAL (PRIMARY) HYPERTENSION (4) DVT prophylaxis Current Visit: Yes Status: Acute Assessment & Plan: started lovenox since pt will not be having surgery. Code(s): Z29.9 - ENCOUNTER FOR PROPHYLACTIC MEASURES, UNSPECIFIED
[2019-01-26] MEDS: ENOXAPARIN SODIUM SQ SCH (12:04)
[2019-01-26] MEDS: PROTONIX 40 MG IV IV SCH (21:38)
[2019-01-27] MEDS: Sodium Chloride 0.9% 1000 ML 1,000 ML IV SCH (02:26)
[2019-01-27] MEDS: FLAGYL 500 MG IVPB 500 MG/100 ML BAG IV SCH (05:26)
[2019-01-27] MEDS: Sodium Chloride 0.9% 10 ML FLUSH Syringe IV SCH (05:29)
[2019-01-27 07:34] VITALS: O2SAT 98
--- NOTE | 2019-01-27 08:55 | CONS ---
CONSULT DATE: 01/25/2019 HISTORY: A 74 year-old over weight female had a bowel movement yesterday, had some vague abdominal pain and had some nausea and emesis yesterday. She did have a bowel movement yesterday. She had prior history of hernia repair by Dr. Nash in her lower or upper abdomen. She had some aches and pains in this site. She had CT scan showed some mild distended small bowel loops. She had some chronic changes in the abdominal wall from past hernia repair with some fat there. It should be noted that she had incidental gallstones but does not have any pain over the gallbladder. There is no wall thickening around the gallbladder itself. All of her symptoms are over the hernia it appears. They recommended G-tube in the emergency room by the emergency room physician. However, she refused that. She denies any nausea currently. She is feeling some better, has mild aches mid abdomen and none over the right upper quadrant. PAST MEDICAL HISTORY: She had breast cancer. She had a lumpectomy by Dr. Nash in the past. She also had hernia repair by Dr. Nash in the past. Otherwise she has history of diabetes, breast cancer, hypercholesterolemia, some hypertension and some reflux. She had breast cancer. She had some cervical cancer in the past as well. PAST SURGICAL HISTORY: Hysterectomy. Lumpectomy by Dr. Nash in the past. She also had ventral hernia repair in the lower epigastrium by Dr. Nash. We do not have the operative note on that but the patient said Dr. Nash did it. She also had some skin cancer removed from face, left thigh, back. She had tonsillectomy in the past. Right knee replacement in the past. MEDICATIONS: She had been on Metformin, potassium chloride, Pravastatin, hydrochlorothiazide, Arimidex, vitamin B12, ferrous sulfate, Vistaril. ALLERGIES: NKDA. REVIEW OF SYSTEMS: Fourteen systems reviewed per admission assessment. No current chest pain or palpitations. Her nausea is better. She refused NG. She did have a bowel movement yesterday. She has had some hypertension. PHYSICAL EXAMINATION: Vital signs temperature 98.2F. Blood pressure 224/93 this morning. GENERAL: No acute distress. HEENT: Sclera nonicteric. NECK: No JVD. CHEST: Equal excursion, nonlabored breathing. CVS: Regular rhythm and pulse. ABDOMEN: Soft. She is obese. She has a midline incision on lower epigastrium. There is no evidence of incarcerated bowel. She has got some mild tenderness mid abdomen. No rebound or guarding currently. EXTREMITIES: No edema. No cyanosis. NEURO: Alert, moving extremities symmetrically. No gross motor deficits noted. LAB DATA AND TESTS: Liver function tests unremarkable. Troponin was negative. White count 10 this morning. Hemoglobin 12.6, PLT count 127,000. CT was reviewed by myself showed cholelithiasis. There is no wall thickening or inflammation around the gallbladder. No pericholecystic fluid. Again, she is nontender in that area. Otherwise she has some mildly dilated loops of small bowel mid abdomen. She has some abdominal wall changes from past hernia repair. There may be some fatty tissue but there is no evidence of bowel incarceration that can be visualized, seems to be chronic abdominal wall changes from history of hernia repair in the past. Otherwise no free air, no collections. IMPRESSION: Some vague abdominal pain. She had some vomiting which resolved. Her nausea is better she said. She has mildly dilated loops of small bowel without any evidence of bowel incarcerating the hernia at this point. No obvious transition zone. Some question whether ileus or enteritis as she had been having some vomiting and abdominal wall pain, with past history hernia repair by Dr. Nash. Either way there is no evidence of any bowel incarceration, no need for any emergent surgical intervention. Will treat this as ileus or enteritis at this time, treat with empiric Cipro and Flagyl. As she improves advance her diet. She can follow up in the office with Dr. Nash as she did initially. She does have a gallstone. She likely would benefit from cholecystectomy down the road but do not feel that her current complaints are related to the gallbladder as it all appears to be mid abdomen. She has got some fluid-filled loops of bowel and some chronic abdominal wall changes. She understands. No emergent surgical intervention necessary, maybe try her on a few sips and advance when she is tolerating better and keep her hydrated. She has some abdominal films pending today. No need for emergent surgery. Eventually if she improves can be released. Follow up in the office as an outpatient with Dr. Nash who did her prior breast cancer surgery and her prior hernia repair, according to the patient. Continue medical management. No emergent surgical intervention necessary. I will follow with you.
[2019-01-27] MEDS ORDERED: Ativan 0.5 MG PO ONE ×2 (09:05→09:30)
--- NOTE | 2019-01-27 09:05 | PCM.DS ---
Discharge Summary Date of Admission: 01/26/19 03:37 Admitting Physician: FRANNIE CAMPOVERDE Consults: Consults on Case 01/25/19 03:44 Consult Surgery ROUTINE Primary Care Provider: FRANNIE CAMPOVERDE Allergies Allergies No Known Drug Allergies Allergy (Verified 08/14/17 06:23) Hospital Summary - Hospital Course Hospital Course: Pt is 74 yo female pt of mine from [facility] with DM and HTN who was admitted through ER with abd pain. She was found to have fluid leveling on abd CT - enteritis vs obstruction. Two attempts were made to place an NG tube, after which patient refused. Surgery was consulted. She was started on IV levaquin and flagyl. After 1-2 days her abdominal pain resolved. Yesterday she started CLD and tolerated it well. She is having a little nausea this morning, but thinks it may be related to not sleeping well here and some emotional upset. She did already eat her morning breakfast of clear liquids. She will be given nausea medicine here, and diet will be advanced to bland. Will give some ativan in hopes of getting her some sleep this morning. If she tolerates lunch well, and still having no abd pain or vomiting, will discharge her to home on po flagyl and levaquin to finish 10d of antibiotics. - Vitals & Intake/Output Vital Signs: Vital Signs Temperature 98.5 F 01/27/19 07:32 Pulse Rate 74 01/27/19 07:32 Respiratory Rate 18 01/27/19 07:32 Blood Pressure 186/78 01/27/19 07:32 O2 Sat by Pulse Oximetry 98 01/27/19 07:32 Oxygen-Last Documented O2 Percentage 2 Liters = 28% Intake & Output: Intake & Output 01/24/19 01/25/19 01/26/19 01/27/19 11:59 11:59 11:59 11:59 Intake Total 0 5662 3774 Output Total 1700 2050 Balance 0 3962 1724 Weight 84.5 kg 86 kg 86.8 kg - Lab Result Diagrams: 01/26/19 06:29 01/25/19 05:15 Lab Results-Last 24 Hrs: Accuchecks Date 01/26/19 Date 01/26/19 Time 04:10 Time 16:30 Time 11:30 Accucheck Value: 109 Accucheck Value: 81 Accucheck Value: 101 Accucheck Value: 70 Accucheck Value: 114 Micro Results-Entire Visit: Accuchecks Date 01/26/19 Date 01/26/19 Time 04:10 Time 16:30 Time 11:30 Accucheck Value: 109 Accucheck Value: 81 Accucheck Value: 101 Accucheck Value: 70 Accucheck Value: 114 - Radiology Exams Ordered Rad Exams-Entire Visit: Radiology Procedures Category Date Time Status ABDOMEN 2 VIEW DAILY Exams 01/25/19 08:00 Completed - Procedures and Test Procedures and Tests throughout Hospitalization: Therapy Orders & Screens 01/25/19 04:15 Oxygen Nasal Cannula 2 lpm Comment: Diagnosis: abdominal pain Discharge Exam General Appearance: no apparent distress, alert Neurologic Exam: oriented x 3, cooperative, normal mood/affect Eye Exam: eyes nml inspection Ears, Nose, Throat Exam: moist mucous membranes Respiratory Exam: normal breath sounds, lungs clear, No crackles/rales, No rhonchi, No wheezing Cardiovascular Exam: regular rate/rhythm, normal heart sounds, No murmur Gastrointestinal/Abdomen Exam: soft, normal bowel sounds, tenderness ( epigastrum and RLQ), No distention, No mass, No guarding, No rebound Back Exam: normal inspection, No rash Extremity Exam: normal inspection, No pedal edema, No swelling Final Diagnosis/Problem List - Final Discharge Diagnosis/Problem (1) Enteritis Current Visit: Yes Status: Acute Assessment & Plan: Much improved. If tolerates bland lunch without nausea or abd pain, will send her home on po levaquin and flagyl. Code(s): K52.9 - NONINFECTIVE GASTROENTERITIS AND COLITIS, UNSPECIFIED (2) Diabetes mellitus Current Visit: No Status: Chronic Code(s): E11.9 - TYPE 2 DIABETES MELLITUS WITHOUT COMPLICATIONS (3) HTN (hypertension) Current Visit: No Status: Chronic Code(s): I10 - ESSENTIAL (PRIMARY) HYPERTENSION (4) DVT prophylaxis Current Visit: Yes Status: Acute Code(s): Z29.9 - ENCOUNTER FOR PROPHYLACTIC MEASURES, UNSPECIFIED - Discharge Disposition: Home, Self-Care Condition: Good Prescriptions: No Action Pravastatin Sodium 20 mg PO HS Potassium Chloride 10 Meq Tab* [Klor Con 10 MEQ] 10 meq PO BID Metformin HCl 500 mg [Glucophage 500 MG] 500 mg PO BID Hydrochlorothiazide 25 mg [hydroDIURIL 25 MG] 25 mg PO DAILY Lisinopril 20 mg [Zestril 20 MG] 20 mg PO DAILY Ferrous Sulfate [Iron] 325 mg PO DAILY Anastrozole [Arimidex] 1 mg PO HS Cyanocobalamin (Vitamin B-12) [Vitamin B-12] 1,000 mcg IM DIRECTIONS UNKNOWN Follow up with: CAMILO SNYDER [ACTIVE STAFF] - 02/05/19 1:40 pm FRANNIE CAMPOVERDE [Primary Care Provider] - 02/03/19 10:45 am
--- NOTE | 2019-01-27 09:10 | HP ---
CHIEF COMPLAINT: Abdominal pain. HISTORY OF PRESENT ILLNESS: The patient is a 74 year-old white female who reports that she had problems with severe mid abdominal pain which brought her to the emergency room. She reports that she was still having bowel movements but began having some vomiting. PAST MEDICAL/SURGICAL HISTORY: Significant for hypertension, diabetes mellitus type 2, gastroesophageal reflux. She has had breast cancer, cervical cancer, abnormal uterine bleeding in the past. Lumpectomy and hysterectomy has been performed. HOME MEDICATIONS: Includes Arimidex 1 mg at night, vitamin B12, iron, hydroDIURIL 25 mg, lisinopril 20 mg a day, Metformin 500 mg b.i.d., potassium 10 mEq b.i.d., Pravastatin 20 mg a day. ALLERGIES: NKDA. PHYSICAL EXAMINATION: Her vital signs on admission showed temperature 98.2F, pulse 80, respiratory rate 16, blood pressure 219/115. O2 saturation 98% on room air. HEENT: Normocephalic, atraumatic. Pupils equal round reactive to light. Extraocular movements intact. Oropharynx is pink and moist. NECK: Supple without lymphadenopathy, thyromegaly or JVD. CHEST: Clear to auscultation. HEART: Regular rate and rhythm without murmurs, rubs or gallops. ABDOMEN: Fairly quiet. There are a few scattered bowel sounds present. There are no palpable masses and the abdomen is slightly distended. EXTREMITIES: Without cyanosis, clubbing or edema. NEUROLOGIC: The patient is alert and oriented x3 with no focal deficits noted. LAB DATA AND TESTS: Showed glucose 169, BUN 26, creatinine 1.06. Her electrolytes are normal. Liver enzymes were normal. Troponins less than 0.012. White blood cell count 12,400, hemoglobin 12.6, PLT count 127,000. UA with specific gravity 1.015 and essentially normal. Lactic acid was 2.2 initially and was 2.0 after some fluid hydration. The patient had CT scan showing nonspecific ileus versus enteritis or partial small bowel obstruction and cholelithiasis. ASSESSMENT: Surgical consultation was obtained. They ordered NG tube but they were unable to place as the patient is now refusing NG tube placement. She had been seen in consultation by Dr. Garner. At this time he feels like the gallbladder can be addressed as an outpatient otherwise she just needs gut rest and he feels that there is no active problem requiring surgical intervention at this time. She will be placed on IV fluid hydration and empiric Levaquin and Flagyl. We will add hydralazine 10 mg every six hours PRN for hypertension above systolic of 180.
[2019-01-27] MEDS ORDERED: Ativan 0.5 MG ONE (09:41)
[2019-01-27] MEDS: Zestril 20 MG PO SCH (09:44)
[2019-01-27] MEDS: Levofloxacin 500MG/100ML D5W 500 MG/100 ML BAG IV SCH (09:44)
[2019-01-27] MEDS: Pepcid 20 MG VIAL IV SCH (09:45)
[2019-01-27] MEDS: ENOXAPARIN SODIUM SQ SCH (09:45)
[2019-01-27] MEDS ORDERED: NORVASC 5 MG PO SCH (10:00)
[2019-01-27 11:49] VITALS: BP 198/87; PULSE 75
== END 2019-01-27 13:45 | disposition home or self-care (01) | DRG 392 ==
LOC: ED 20:09 → MED SURG 01-25 03:37 → OBSVTOIN 01-26 03:37
PROVIDERS: ADMIT Family Medicine; ATTEND Family Medicine
DX: K52.9 Noninfective gastroenteritis and colitis, unspecified (principal); Z79.899 Other long term (current) drug therapy; E11.9 Type 2 diabetes mellitus without complications; I10 Essential (primary) hypertension; Z85.3 Personal history of malignant neoplasm of breast; Z85.42 Personal history of malignant neoplasm of other parts of uterus
CPT/HCPCS: 36000; 36415; 74021; 74176; 80053; 81001; 82150; 82962; 83036; 83605; 83690; 84484; 85025; 85027; 93005; 93268; 94760; 96360; 96361; 96372; 96374; 96375; 96376; 99285; G0378; J0360; J1170; J1650; J1956; J2270; J2405; J2550; A9270-GY

== ENCOUNTER → 2019-07-22 | Day surgery (SDC) | payer MEDICARE, OTHER | LOC: CLIN-SCCH 08:00 | PROVIDERS: ATTEND Nurse Practitioner Family | DX: J06.9 Acute upper respiratory infection, unspecified (principal) | CPT/HCPCS: 96372; 99213; J3301 ==

== ENCOUNTER 2020-03-13 11:43 | Observation (INO) | payer MEDICARE, OTHER ==
--- NOTE | 2020-03-13 12:02 | ERPHSYRPT ---
- History of Present Illness Time Seen by Provider: 03/13/20 11:54 Historian: patient, family Exam Limitations: no limitations Physician History: This is a diabetic 75-year-old white female with history of hypertension who was brought in to the emergency department by her daughter with the complaint of lower abdominal pain and associated nausea and vomiting. Onset of vomiting was this morning. She vomited approximately 4 times. She has lower crampy abdominal pain. Patient has had her gallbladder out in the past within the last 2 years. She is also had 3 abdominal hernia repairs with mesh in the past. She has had episodes of small bowel obstruction in the past that she has been admitted for. She was able to get through these episodes nonoperatively. Judy ent denies shortness of breath she denies fever. She denies cough. She denies vaginal discharge. She denies diarrhea. Timing/Duration: today Activities at Onset: none Quality: cramping Abdominal Pain Onset Location: suprapubic Pain Radiation: no radiation Severity of Pain-Max: moderate Severity of Pain-Current: moderate Modifying Factors: Improves With: vomiting Associated Symptoms: loss of appetite, nausea, vomiting Previous symptoms: same symptoms as today Allergies/Adverse Reactions: No Known Drug Allergies Allergy (Verified 08/14/17 06:23) Home Medications: Metformin HCl 500 mg [Glucophage 500 MG] 500 mg PO BID 10/09/12 [History] Potassium Chloride 10 Meq Tab* [Klor Con 10 MEQ] 10 meq PO BID 10/09/12 [History] Pravastatin Sodium 20 mg PO HS 10/09/12 [History] Hydrochlorothiazide 25 mg [hydroDIURIL 25 MG] 25 mg PO DAILY 11/12/14 [History] Cyanocobalamin (Vitamin B-12) [Vitamin B-12] 1,000 mcg IM DIRECTIONS UNKNOWN 08/08/17 [History] Ferrous Sulfate [Iron] 325 mg PO DAILY 08/08/17 [History] Lisinopril 20 mg [Zestril 20 MG] 20 mg PO DAILY 08/08/17 [History] Hx Tetanus, Diphtheria Vaccination/Date Given: Yes (up to date) Hx Influenza Vaccination/Date Given: Yes Hx Pneumococcal Vaccination/Date Given: Yes Travel Risk - International Travel Have you traveled outside of the country in past 3 weeks: No - Coronavirus Screening Are you exhibiting any of the following symptoms?: No Close contact with a COVID-19 positive Pt in past 14-21 Days: No - Review of Systems Constitutional: No Symptoms Eyes: No Symptoms Ears, Nose, & Throat: No Symptoms Respiratory: No Symptoms Cardiac: No Symptoms Abdominal/Gastrointestinal: Abdominal Pain, Nausea, Vomiting Genitourinary Symptoms: No Symptoms Musculoskeletal: No Symptoms Skin: No Symptoms Neurological: No Symptoms Psychological: No Symptoms Endocrine: No Symptoms Hematologic/Lymphatic: No Symptoms Immunological/Allergic: No Symptoms All Other Systems: Reviewed and Negative - Past Medical History Pertinent Past Medical History: Yes Neurological History: No Pertinent History ENT History: No Pertinent History Cardiac History: Hypertension Respiratory History: No Pertinent History Endocrine Medical History: Diabetes Type II Musculoskeletal History: No Pertinent History GI Medical History: GERD History: No Pertinent History Psycho-Social History: No Pertinent History Female Reproductive Disorders: Abnormal Uterine Bleeding, Breast Cancer, Cervical Cancer, Other Other Medical History: BREAST CA, UTERINE CA - Past Surgical History Past Surgical History: Yes Neuro Surgical History: No Pertinent History Cardiac: No Pertinent History Respiratory: No Pertinent History Gastrointestinal: No Pertinent History, Hernia Repair Genitourinary: No Pertinent History Musculoskeletal: Orthopedic Surgery Female Surgical History: Lumpectomy, Hysterectomy Other Surgical History: tonsils as a child, left and right knee replacement. skin cancer removal to face, left thigh and back,left breast lumpectomy w/ radiation following, uterine cancer w/hyster., Confirms no lymph nodes removed - Social History Smoking Status: Never smoker Exposure to second hand smoke: No Alcohol Use: None Drug Use: none Patient Lives Alone: No Significant Family History: no pertinent family hx - Nursing Vital Signs Nursing Vital Signs: Initial Vital Signs Temperature 98.5 F 03/13/20 11:49 Pulse Rate 89 03/13/20 11:49 Respiratory Rate 20 03/13/20 11:49 Blood Pressure 206/101 03/13/20 11:49 O2 Sat by Pulse Oximetry 98 03/13/20 11:49 Pain Scale Pain Intensity 47 - Physical Exam General Appearance: mild distress, alert, anxiety Eye Exam: PERRL/EOMI, eyes nml inspection Ears, Nose, Throat Exam: normal ENT inspection, moist mucous membranes Neck Exam: normal inspection, non-tender, supple, full range of motion Respiratory Exam: normal breath sounds, lungs clear, No chest tenderness, No respiratory distress Cardiovascular Exam: regular rate/rhythm, normal heart sounds, normal peripheral pulses Gastrointestinal/Abdomen Exam: soft, normal bowel sounds, tenderness, guarding, No rebound Pelvic Exam: not done Rectal Exam: not done Back Exam: normal inspection, normal range of motion, No CVA tenderness, No vertebral tenderness Extremity Exam: normal inspection, normal range of motion, pelvis stable Neurologic Exam: alert, oriented x 3, cooperative, field services director II-XII nml as tested, normal mood/affect, nml cerebellar function, nml station & gait, sensation nml Skin Exam: normal color, warm, dry Lymphatic Exam: No adenopathy SpO2 Interpretation: normal O2 Delivery: Room Air Ordered Tests: Active Orders 24 hr Category Date Time Status IV Insertion STAT Care 03/13/20 12:06 Active ABDOMEN AND PELVIS W/0 CONTRAS [CT] Stat Exams 03/13/20 12:06 Taken AMYLASE Stat Lab 03/13/20 12:06 Completed CBC W DIFF Stat Lab 03/13/20 12:06 Completed CMP Stat Lab 03/13/20 12:06 Completed LIPASE Stat Lab 03/13/20 12:06 Completed Lactic Acid Stat Lab 03/13/20 12:06 Completed UA W/RFX UR CULTURE Stat Lab 03/13/20 13:23 Completed Transfer Order Routine Transfer 03/13/20 Ordered Medication Summary Discontinued Medications Generic Name Dose Route Start Last Admin Trade Name Freq PRN Reason Stop Dose Admin Hydromorphone HCl 0.5 mg 03/13/20 12:15 03/13/20 12:29 Hydromorphone 1 Mg/Ml Ampule IV 03/13/20 12:16 0.5 mg STAT ONE Administration Hydromorphone HCl Confirm 03/13/20 12:25 Hydromorphone 1 Mg/Ml Ampule Administered 03/13/20 12:26 Dose 1 mg .ROUTE .STK-MED ONE Sodium Chloride 1,000 mls @ 999 mls/hr 03/13/20 12:06 03/13/20 13:27 Sodium Chloride 0.9% 1000 Ml IV 03/13/20 13:06 Infused .Q1H1M STA Infusion Sodium Chloride Confirm 03/13/20 12:09 Sodium Chloride 0.9% 1000 Ml Administered 03/13/20 12:10 Dose 1,000 mls @ ud .ROUTE .STK-MED ONE Ondansetron HCl 4 mg 03/13/20 12:06 03/13/20 12:14 Zofran 4 Mg/2 Ml Vial IV 03/13/20 12:07 4 mg STAT ONE Administration Ondansetron HCl Confirm 03/13/20 12:09 Zofran 4 Mg/2 Ml Vial Administered 03/13/20 12:10 Dose 4 mg .ROUTE .STK-MED ONE Lab/Rad Data: Laboratory Result Diagrams 03/13/20 12:06 03/13/20 12:06 Laboratory Results 03/13/20 03/13/20 03/13/20 Range/Units 13:23 12:06 12:06 WBC (4.0-10.5) K/mm3 RBC (4.1-5.4) M/mm3 Hgb (12.0-16.0) gm/dl Hct (35-47) % MCV (78-100) fl MCH (26-32) pg MCHC (32-36) g/dl RDW (11.5-14.0) % Plt Count (150-450) K/mm3 MPV (7.5-11.0) fl Gran % (36.0-66.0) % Eos # (Auto) (0-0.5) Absolute Lymphs (auto) (1.0-4.6) Absolute Monos (auto) (0.0-1.3) Lymphocytes % (24.0-44.0) % Monocytes % (0.0-12.0) % Eosinophils % (0.00-5.0) % Basophils % (0.0-0.4) % Absolute Granulocytes (1.4-6.9) Basophils # (0-0.4) Sodium 137 (137-145) mmol/L Potassium 4.6 (3.5-5.1) mmol/L Chloride 105 (98-107) mmol/L Carbon Dioxide 22 (22-30) mmol/L Anion Gap 14.8 (5-15) MEQ/L BUN 15 (7-17) mg/dL Creatinine 1.36 H (0.52-1.04) mg/dL Estimated GFR 40.4 ML/MIN Glucose 138 H (74-106) mg/dL Lactic Acid 2.3 H (0.4-2.0) Calcium 9.7 (8.4-10.2) mg/dL Total Bilirubin 1.00 (0.2-1.3) mg/dL AST 25 (14-36) U/L ALT 14 (0-35) U/L Alkaline Phosphatase 108 (38-126) U/L Serum Total Protein 7.6 (6.3-8.2) g/dL Albumin 4.1 (3.5-5.0) g/dL Amylase 82 (30-110) U/L Lipase 91 (23-300) U/L Urine Color YELLOW (YELLOW) Urine Appearance CLEAR (CLEAR) Urine pH 5.0 (5-6) Ur Specific [place] 1.006 (1.005-1.025) Urine Protein NEGATIVE (Negative) Urine Ketones NEGATIVE (NEGATIVE) Urine Blood NEGATIVE (0-5) Malvin/ul Urine Nitrite NEGATIVE (NEGATIVE) Urine Bilirubin NEGATIVE (NEGATIVE) Urine Urobilinogen NEGATIVE (0-1) mg/dL Ur Leukocyte Esterase NEGATIVE (NEGATIVE) Urine WBC (Auto) 0-2 (0-5) /HPF Urine RBC (Auto) NONE (0-2) /HPF U Hyaline Cast (Auto) 0-2 (0-2) /LPF U Epithel Cells (Auto) NONE (FEW) /HPF Urine Bacteria (Auto) RARE (NEGATIVE) /HPF Urine Culture Reflexed NO (NO) Urine Glucose NEGATIVE (NEGATIVE) mg/dL 03/13/20 Range/Units 12:06 WBC 9.8 (4.0-10.5) K/mm3 RBC 4.61 (4.1-5.4) M/mm3 Hgb 13.2 (12.0-16.0) gm/dl Hct 40.7 (35-47) % MCV 88.3 (78-100) fl MCH 28.6 (26-32) pg MCHC 32.4 (32-36) g/dl RDW 13.8 (11.5-14.0) % Plt Count 175 (150-450) K/mm3 MPV 12.3 H (7.5-11.0) fl Gran % 83.4 H (36.0-66.0) % Eos # (Auto) 0.23 (0-0.5) Absolute Lymphs (auto) 1.05 (1.0-4.6) Absolute Monos (auto) 0.33 (0.0-1.3) Lymphocytes % 10.7 L (24.0-44.0) % Monocytes % 3.4 (0.0-12.0) % Eosinophils % 2.3 (0.00-5.0) % Basophils % 0.2 (0.0-0.4) % Absolute Granulocytes 8.21 H (1.4-6.9) Basophils # 0.02 (0-0.4) Sodium (137-145) mmol/L Potassium (3.5-5.1) mmol/L Chloride (98-107) mmol/L Carbon Dioxide (22-30) mmol/L Anion Gap (5-15) MEQ/L BUN (7-17) mg/dL Creatinine (0.52-1.04) mg/dL Estimated GFR ML/MIN Glucose (74-106) mg/dL Lactic Acid (0.4-2.0) Calcium (8.4-10.2) mg/dL Total Bilirubin (0.2-1.3) mg/dL AST (14-36) U/L ALT (0-35) U/L Alkaline Phosphatase (38-126) U/L Serum Total Protein (6.3-8.2) g/dL Albumin (3.5-5.0) g/dL Amylase (30-110) U/L Lipase (23-300) U/L Urine Color (YELLOW) Urine Appearance (CLEAR) Urine pH (5-6) Ur Specific [place] (1.005-1.025) Urine Protein (Negative) Urine Ketones (NEGATIVE) Urine Blood (0-5) Malvin/ul Urine Nitrite (NEGATIVE) Urine Bilirubin (NEGATIVE) Urine Urobilinogen (0-1) mg/dL Ur Leukocyte Esterase (NEGATIVE) Urine WBC (Auto) (0-5) /HPF Urine RBC (Auto) (0-2) /HPF U Hyaline Cast (Auto) (0-2) /LPF U Epithel Cells (Auto) (FEW) /HPF Urine Bacteria (Auto) (NEGATIVE) /HPF Urine Culture Reflexed (NO) Urine Glucose (NEGATIVE) mg/dL - Progress Progress: unchanged, re-examined Progress Note: 03/13/20 13:59 CAT scan of the abdomen and pelvis reveals probable cirrhosis with moderate splenomegaly borderline gastrohepatic and celiac axis at adenopathy, with central fat in the mesentery showing edema. I spoke with Dr. Noe regarding this patient's history, condition, physical findings, laboratory and CAT scan results. Patient is not significantly better after IV hydration, pain medication and antiemetics. We will place her in observation with a diagnosis of abdominal pain and vomiting. We will give her IV hydration, pain medicine, antiemetics and place her on a clear liquid diet. Counseled pt/family regarding: lab results, diagnosis, rad results - Departure Departure Disposition: Observation Clinical Impression: Abdominal pain, Vomiting Condition: Stable Critical Care Time: No Referrals: FRANNIE CAMPOVERDE [Primary Care Provider] -
[2020-03-13] MEDS ORDERED: Sodium Chloride 0.9% 1000 ML 1,000 ML IV STA (12:06)
[2020-03-13] MEDS ORDERED: Zofran 4 MG/2 ML VIAL IV ONE (12:06)
[2020-03-13] MEDS ORDERED: Sodium Chloride 0.9% 1000 ML 1,000 ML ONE (12:09)
[2020-03-13] MEDS ORDERED: Zofran 4 MG/2 ML VIAL ONE (12:09)
[2020-03-13 12:11] LABS: Absolute Neutrophil Ct (ANC) 8.21 (1.4-6.9); BASOPHIL % 0.2 % (0.0-0.4); Basophil (Absolute #) 0.02 (0-0.4); Eosinophil % 2.3 % (0.00-5.0); Eosinophil (Absolute #) 0.23 (0-0.5); Hematocrit 40.7 % (35-47); Hemoglobin 13.2 gm/dl (12.0-16.0); Lymphocyte (Absolute #) 1.05 (1.0-4.6); Lymphocytes % 10.7 % (24.0-44.0); Mean Cell Volume 88.3 fl (78-100); Mean Corpuscular Hemoglobin 28.6 pg (26-32); Mean Corpuscular Hgb Concent. 32.4 g/dl (32-36); Mean Platelet Volume 12.3 fl (7.5-11.0); Monocyte (Absolute #) 0.33 (0.0-1.3); Monocytes % 3.4 % (0.0-12.0); Neutrophil % 83.4 % (36.0-66.0); Platelet Count 175 K/mm3 (150-450); Red Blood Count 4.61 M/mm3 (4.1-5.4); Red Cell Distribution Width 13.8 % (11.5-14.0); White Blood Count 9.8 K/mm3 (4.0-10.5)
[2020-03-13] MEDS ORDERED: Hydromorphone 1 mg/ml Ampule IV ONE (12:15)
[2020-03-13 12:19] LABS: ALBUMIN 4.1 g/dL (3.5-5.0); ANION GAP 14.8 MEQ/L (5-15); Calcium 9.7 mg/dL (8.4-10.2); Creatinine 1 1.36 mg/dL (0.52-1.04); Potassium 4.6 mmol/L (3.5-5.1); Total Protein 7.6 g/dL (6.3-8.2)
[2020-03-13] MEDS ORDERED: Hydromorphone 1 mg/ml Ampule ONE (12:25)
[2020-03-13 13:36] LABS: Appearance CLEAR (CLEAR); Bacteria RARE /HPF (NEGATIVE); Bilirubin NEGATIVE (NEGATIVE); Blood NEGATIVE Ery/ul (0-5); Glucose NEGATIVE (NEGATIVE); Hyaline Casts 0-2 /LPF (0-2); Ketones NEGATIVE (NEGATIVE); Leukocyte Esterase NEGATIVE (NEGATIVE); Nitrite NEGATIVE (NEGATIVE); Protein,Urine Dip NEGATIVE (Negative); Specific Gravity 1.006 (1.005-1.025); Urobilinogen NEGATIVE mg/dL (0-1); WBC 0-2 /HPF (0-5)
[2020-03-13] MEDS ORDERED: DILAUDID 2 MG INJECTION IV PRN (14:35)
[2020-03-13] MEDS ORDERED: TYLENOL 325 MG PO PRN (14:35)
[2020-03-13] MEDS ORDERED: Zofran 4 MG/2 ML VIAL IV PRN (14:35)
[2020-03-13] MEDS: Sodium Chloride 0.9% 1000 ML 1,000 ML IV SCH (14:56)
[2020-03-13] MEDS: Pepcid 20 MG VIAL IV SCH (14:56)
[2020-03-13] MEDS ORDERED: PROTONIX 40 MG IV IV ONE (15:45)
[2020-03-13] MEDS ORDERED: APRESOLINE 20 MG/ML INJ IV PRN (15:46)
[2020-03-13] MEDS ORDERED: Zestril 20 MG PO ONE (16:00)
--- NOTE | 2020-03-13 19:56 | XRAY ---
Indication: Abdomen pain, nausea, and vomiting. Multiple contiguous axial images obtained through the abdomen and pelvis without contrast as ordered. Comparison: January 24, 2019. Lung bases remain clear. Heart is not enlarged. Stable small hiatal hernia. Noncontrasted stomach and bowel loops remain nonobstructed. Mid to lower abdomen small bowel loops again mildly fluid distended less than before again with fluid leveling, ileus versus enteritis. No free fluid/air. Interval cholecystectomy. Stable mild prominent mesenteric root lymph nodes, mild cirrhotic liver, 15 cm splenomegaly, nonobstructing left renal micro-calculus, and hysterectomy. Remaining liver, pancreas, spleen, adrenal glands, kidneys, ureters, and bladder appear unremarkable for noncontrast exam. Stable minimal aortoiliac calcifications without AAA. Osseous structures intact taken with mild degenerative changes throughout the thoracolumbar spine. Impression: 1. Again mild fluid distended small bowel loops with fluid leveling, ileus versus enteritis. 2. Status post cholecystectomy without complications. 3. Stable prominent mesenteric root lymph nodes, cirrhosis, splenomegaly, hiatal hernia, and nonobstructing left renal micro-calculus. Comment: Preliminary interpretation was made by [facility]. No critical discrepancy.
[2020-03-14] MEDS: Sodium Chloride 0.9% 1000 ML 1,000 ML IV SCH (01:25)
[2020-03-14 05:04] LABS: Absolute Neutrophil Ct (ANC) 3.26 (1.4-6.9); BASOPHIL % 0.6 % (0.0-0.4); Basophil (Absolute #) 0.03 (0-0.4); Eosinophil (Absolute #) 0.26 (0-0.5); Hematocrit 31.7 % (35-47); Lymphocyte (Absolute #) 1.35 (1.0-4.6); Lymphocytes % 25.7 % (24.0-44.0); Mean Cell Volume 89.3 fl (78-100); Mean Corpuscular Hemoglobin 28.5 pg (26-32); Mean Corpuscular Hgb Concent. 31.9 g/dl (32-36); Mean Platelet Volume 12.7 fl (7.5-11.0); Monocyte (Absolute #) 0.35 (0.0-1.3); Monocytes % 6.7 % (0.0-12.0); Platelet Count 116 K/mm3 (150-450); Red Blood Count 3.55 M/mm3 (4.1-5.4); Red Cell Distribution Width 13.7 % (11.5-14.0); White Blood Count 5.3 K/mm3 (4.0-10.5)
[2020-03-14 05:12] LABS: Hemoglobin 10.1 gm/dl (12.0-16.0)
[2020-03-14 05:17] LABS: ALBUMIN 2.9 g/dL (3.5-5.0); ANION GAP 8.7 MEQ/L (5-15); BILIRUBIN,TOTAL 0.9 mg/dL (0.2-1.3); Calcium 8.3 mg/dL (8.4-10.2); Creatinine 1 1.13 mg/dL (0.52-1.04); Potassium 3.8 mmol/L (3.5-5.1); Total Protein 5.7 g/dL (6.3-8.2)
--- NOTE | 2020-03-14 09:31 | PCM.HP ---
History of Present Illness - Chief Complaint Chief Complaint: abdominal pain, vomiting History of Present Illness: is a 75 year old female pt of mine with HTN, DM, hyperlipidemia who was admitted through the ER c/o N/V and abd pain. Pt vomited x 4 at home. Started yesterday. Abd pain was diffuse, but worse periumbilical/epigastric. Has improved since admission. No N/V now. Reports no abd pain this morning. c/o some MURRELL, which is common for her. Urinating well. No BM since admission. Deborah CLD. Up using the restroom on her own. - Review of Systems Abdominal/Gastrointestinal: Abdominal Pain, Nausea, Vomiting Neurological: Headache Medications & Allergies Home Medications: Home Medication List Metformin HCl 500 mg [Glucophage 500 MG] 500 mg PO BID 10/09/12 [History Confirmed 03/13/20] Potassium Chloride 10 Meq Tab* [Klor Con 10 MEQ] 10 meq PO BID 10/09/12 [History Confirmed 03/13/20] Pravastatin Sodium 20 mg PO HS 10/09/12 [History Confirmed 03/13/20] Hydrochlorothiazide 25 mg [hydroDIURIL 25 MG] 25 mg PO DAILY 11/12/14 [History Confirmed 03/13/20] Cyanocobalamin (Vitamin B-12) [Vitamin B-12] 1,000 mcg IM DIRECTIONS UNKNOWN 08/08/17 [History Confirmed 03/13/20] Ferrous Sulfate [Iron] 325 mg PO DAILY 08/08/17 [History Confirmed 03/13/20] Lisinopril 20 mg [Zestril 20 MG] 20 mg PO DAILY 08/08/17 [History Confirmed 03/13/20] Cholecalciferol (Vitamin D3) [D-2000] 2,000 unit PO DAILY 03/13/20 [History Confirmed 03/13/20] PANTOPRAZOLE 40 mg Tablet [Protonix 40MG Tablet] 40 mg PO QAM 03/13/20 [History Confirmed 03/13/20] Allergies/Adverse Reactions: Allergies Allergy/AdvReac Type Severity Reaction Status Date / Time No Known Drug Allergies Allergy Verified 08/14/17 06:23 - Past Medical History Past Medical History: Yes Neurological History: No Pertinent History ENT History: No Pertinent History Cardiac History: Hypertension Respiratory History: No Pertinent History Endocrine Medical History: Diabetes Type II Musculoskelatal History: No Pertinent History GI Medical History: Cirrhosis, GERD, Hernia History: No Pertinent History Pyscho-Social History: No Pertinent History Reproductive Disorders: Abnormal Uterine Bleeding, Breast Cancer, Cervical Cancer, Other Comment: BREAST CA- tx lumpectomy and radiation , UTERINE CA - Female History Are you now?: No - Past Surgical History Past Surgical History: Yes Neuro Surgical History: No Pertinent History Cardiac History: No Pertinent History Respiratory Surgery: No Pertinent History GI Surgical History: Cholecystectomy, Hernia Repair Genitourinary Surgical Hx: No Pertinent History Musculskeletal Surgical Hx: Orthopedic Surgery Female Surgical History: Lumpectomy, Hysterectomy Other Surgical History: tonsils as a child, left and right knee replacement. skin cancer removal to face, left thigh and back,left breast lumpectomy w/ radiation following, uterine cancer w/hyster., Confirms no lymph nodes removed - Social History Smoking Status: Never smoker Exposure to second hand smoke: No Alcohol: None Drug Use: none Significant Family History: no pertinent family hx - Physical Exam Vital Signs: Vital Signs - 24 hr Temp Pulse Resp BP Pulse Ox 03/14/20 07:57 98.3 F 65 18 147/64 95 03/14/20 04:15 98.1 F 72 20 147/63 97 03/13/20 23:41 98.6 F 59 L 18 145/65 96 03/13/20 19:52 98.5 F 67 18 142/63 99 03/13/20 14:58 98.5 F 71 18 171/72 98 03/13/20 14:35 98.5 F 71 18 171/72 98 03/13/20 14:15 97.2 F 66 20 159/75 98 03/13/20 13:23 81 20 143/62 98 03/13/20 12:45 84 18 198/96 98 03/13/20 11:49 98.5 F 89 20 206/101 98 General Appearance: no apparent distress, obese Neurologic Exam: oriented x 3, cooperative Eye Exam: eyes nml inspection Ears, Nose, Throat Exam: moist mucous membranes Neck Exam: normal inspection, non-tender, No lymphadenopathy Respiratory Exam: normal breath sounds, lungs clear, No crackles/rales, No rhonchi, No wheezing Cardiovascular Exam: regular rate/rhythm, normal heart sounds, No murmur Gastrointestinal/Abdomen Exam: soft, normal bowel sounds, tenderness (epigastric, periumbilical, and LUQ ttp.), No distention, No mass, No guarding, No rebound Back Exam: normal inspection, No rash Extremity Exam: swelling (trace pretibial edema bilat) Skin Exam: normal color, warm, dry, No rash Results - Labs Lab/Micro Results: Accuchecks Date 03/13/20 Date 03/13/20 Time 22:00 Time 16:30 Accucheck Value: 94 Accucheck Value: 93 Lab Results-Last 24 Hours 03/13/20 03/13/20 03/13/20 Range/Units 12:06 12:06 12:06 WBC 9.8 (4.0-10.5) K/mm3 RBC 4.61 (4.1-5.4) M/mm3 Hgb 13.2 (12.0-16.0) gm/dl Hct 40.7 (35-47) % MCV 88.3 (78-100) fl MCH 28.6 (26-32) pg MCHC 32.4 (32-36) g/dl RDW 13.8 (11.5-14.0) % Plt Count 175 (150-450) K/mm3 MPV 12.3 H (7.5-11.0) fl Gran % 83.4 H (36.0-66.0) % Eos # (Auto) 0.23 (0-0.5) Absolute Lymphs (auto) 1.05 (1.0-4.6) Absolute Monos (auto) 0.33 (0.0-1.3) Lymphocytes % 10.7 L (24.0-44.0) % Monocytes % 3.4 (0.0-12.0) % Eosinophils % 2.3 (0.00-5.0) % Basophils % 0.2 (0.0-0.4) % Absolute Granulocytes 8.21 H (1.4-6.9) Basophils # 0.02 (0-0.4) Sodium 137 (137-145) mmol/L Potassium 4.6 (3.5-5.1) mmol/L Chloride 105 (98-107) mmol/L Carbon Dioxide 22 (22-30) mmol/L Anion Gap 14.8 (5-15) MEQ/L BUN 15 (7-17) mg/dL Creatinine 1.36 H (0.52-1.04) mg/dL Estimated GFR 40.4 ML/MIN Glucose 138 H (74-106) mg/dL Lactic Acid 2.3 H (0.4-2.0) Calcium 9.7 (8.4-10.2) mg/dL Total Bilirubin 1.00 (0.2-1.3) mg/dL AST 25 (14-36) U/L ALT 14 (0-35) U/L Alkaline Phosphatase 108 (38-126) U/L Serum Total Protein 7.6 (6.3-8.2) g/dL Albumin 4.1 (3.5-5.0) g/dL Amylase 82 (30-110) U/L Lipase 91 (23-300) U/L Urine Color (YELLOW) Urine Appearance (CLEAR) Urine pH (5-6) Ur Specific [place] (1.005-1.025) Urine Protein (Negative) Urine Ketones (NEGATIVE) Urine Blood (0-5) Malvin/ul Urine Nitrite (NEGATIVE) Urine Bilirubin (NEGATIVE) Urine Urobilinogen (0-1) mg/dL Ur Leukocyte Esterase (NEGATIVE) Urine WBC (Auto) (0-5) /HPF Urine RBC (Auto) (0-2) /HPF U Hyaline Cast (Auto) (0-2) /LPF U Epithel Cells (Auto) (FEW) /HPF Urine Bacteria (Auto) (NEGATIVE) /HPF Urine Culture Reflexed (NO) Urine Glucose (NEGATIVE) mg/dL 03/13/20 03/13/20 03/14/20 Range/Units 13:23 14:23 04:28 WBC 5.3 (4.0-10.5) K/mm3 RBC 3.55 L (4.1-5.4) M/mm3 Hgb 10.1 L D (12.0-16.0) gm/dl Hct 31.7 L (35-47) % MCV 89.3 (78-100) fl MCH 28.5 (26-32) pg MCHC 31.9 L (32-36) g/dl RDW 13.7 (11.5-14.0) % Plt Count 116 L (150-450) K/mm3 MPV 12.7 H (7.5-11.0) fl Gran % 62.0 (36.0-66.0) % Eos # (Auto) 0.26 (0-0.5) Absolute Lymphs (auto) 1.35 (1.0-4.6) Absolute Monos (auto) 0.35 (0.0-1.3) Lymphocytes % 25.7 (24.0-44.0) % Monocytes % 6.7 (0.0-12.0) % Eosinophils % 5.0 (0.00-5.0) % Basophils % 0.6 (0.0-0.4) % Absolute Granulocytes 3.26 (1.4-6.9) Basophils # 0.03 (0-0.4) Sodium (137-145) mmol/L Potassium (3.5-5.1) mmol/L Chloride (98-107) mmol/L Carbon Dioxide (22-30) mmol/L Anion Gap (5-15) MEQ/L BUN (7-17) mg/dL Creatinine (0.52-1.04) mg/dL Estimated GFR ML/MIN Glucose (74-106) mg/dL Lactic Acid 1.6 (0.4-2.0) Calcium (8.4-10.2) mg/dL Total Bilirubin (0.2-1.3) mg/dL AST (14-36) U/L ALT (0-35) U/L Alkaline Phosphatase (38-126) U/L Serum Total Protein (6.3-8.2) g/dL Albumin (3.5-5.0) g/dL Amylase (30-110) U/L Lipase (23-300) U/L Urine Color YELLOW (YELLOW) Urine Appearance CLEAR (CLEAR) Urine pH 5.0 (5-6) Ur Specific [place] 1.006 (1.005-1.025) Urine Protein NEGATIVE (Negative) Urine Ketones NEGATIVE (NEGATIVE) Urine Blood NEGATIVE (0-5) Malvin/ul Urine Nitrite NEGATIVE (NEGATIVE) Urine Bilirubin NEGATIVE (NEGATIVE) Urine Urobilinogen NEGATIVE (0-1) mg/dL Ur Leukocyte Esterase NEGATIVE (NEGATIVE) Urine WBC (Auto) 0-2 (0-5) /HPF Urine RBC (Auto) NONE (0-2) /HPF U Hyaline Cast (Auto) 0-2 (0-2) /LPF U Epithel Cells (Auto) NONE (FEW) /HPF Urine Bacteria (Auto) RARE (NEGATIVE) /HPF Urine Culture Reflexed NO (NO) Urine Glucose NEGATIVE (NEGATIVE) mg/dL 03/14/20 Range/Units 04:28 WBC (4.0-10.5) K/mm3 RBC (4.1-5.4) M/mm3 Hgb (12.0-16.0) gm/dl Hct (35-47) % MCV (78-100) fl MCH (26-32) pg MCHC (32-36) g/dl RDW (11.5-14.0) % Plt Count (150-450) K/mm3 MPV (7.5-11.0) fl Gran % (36.0-66.0) % Eos # (Auto) (0-0.5) Absolute Lymphs (auto) (1.0-4.6) Absolute Monos (auto) (0.0-1.3) Lymphocytes % (24.0-44.0) % Monocytes % (0.0-12.0) % Eosinophils % (0.00-5.0) % Basophils % (0.0-0.4) % Absolute Granulocytes (1.4-6.9) Basophils # (0-0.4) Sodium 139 (137-145) mmol/L Potassium 3.8 (3.5-5.1) mmol/L Chloride 110 H (98-107) mmol/L Carbon Dioxide 24 (22-30) mmol/L Anion Gap 8.7 (5-15) MEQ/L BUN 12 (7-17) mg/dL Creatinine 1.13 H (0.52-1.04) mg/dL Estimated GFR 50.0 ML/MIN Glucose 88 (74-106) mg/dL Lactic Acid (0.4-2.0) Calcium 8.3 L (8.4-10.2) mg/dL Total Bilirubin 0.90 (0.2-1.3) mg/dL AST 20 (14-36) U/L ALT 11 (0-35) U/L Alkaline Phosphatase 71 (38-126) U/L Serum Total Protein 5.7 L (6.3-8.2) g/dL Albumin 2.9 L (3.5-5.0) g/dL Amylase (30-110) U/L Lipase (23-300) U/L Urine Color (YELLOW) Urine Appearance (CLEAR) Urine pH (5-6) Ur Specific [place] (1.005-1.025) Urine Protein (Negative) Urine Ketones (NEGATIVE) Urine Blood (0-5) Malvin/ul Urine Nitrite (NEGATIVE) Urine Bilirubin (NEGATIVE) Urine Urobilinogen (0-1) mg/dL Ur Leukocyte Esterase (NEGATIVE) Urine WBC (Auto) (0-5) /HPF Urine RBC (Auto) (0-2) /HPF U Hyaline Cast (Auto) (0-2) /LPF U Epithel Cells (Auto) (FEW) /HPF Urine Bacteria (Auto) (NEGATIVE) /HPF Urine Culture Reflexed (NO) Urine Glucose (NEGATIVE) mg/dL Accuchecks Date 03/13/20 Date 03/13/20 Time 22:00 Time 16:30 Accucheck Value: 94 Accucheck Value: 93 - Radiology Impressions Radiology Exams & Impressions: Radiology Procedures Category Date Time Status ABDOMEN AND PELVIS W/0 CONTRAS [CT] Stat Exams 03/13/20 12:06 Completed Assessment/Plan (1) Ileus Current Visit: Yes Status: Acute Assessment & Plan: Likely; much improved. If deborah bland diet can d/c to home today. Follow bland diet x 3-4 days. Code(s): K56.7 - ILEUS, UNSPECIFIED (2) Vomiting Current Visit: Yes Status: Resolved Qualifiers: Vomiting type: unspecified Vomiting Intractability: non-intractable Nausea presence: with nausea Qualified Code(s): R11.2 - Nausea with vomiting, unspecified Code(s): R11.10 - VOMITING, UNSPECIFIED (3) Diabetes mellitus Current Visit: No Status: Chronic Qualifiers: Diabetes mellitus type: type 2 Diabetes mellitus rodent exterminator insulin use: without prison use Diabetes mellitus complication status: without complication Qualified Code(s): E11.9 - Type 2 diabetes mellitus without complications Code(s): E11.9 - TYPE 2 DIABETES MELLITUS WITHOUT COMPLICATIONS (4) HTN (hypertension) Current Visit: No Status: Chronic Qualifiers: Hypertension type: essential hypertension Qualified Code(s): I10 - Essential (primary) hypertension Assessment & Plan: BP quite high on admission but since has been in 140s systolic. Code(s): I10 - ESSENTIAL (PRIMARY) HYPERTENSION
[2020-03-14] MEDS: Pepcid 20 MG VIAL IV SCH (09:42)
[2020-03-14] MEDS ORDERED: PROTONIX 40 MG IV IV SCH (10:00)
[2020-03-14] MEDS ORDERED: Zestril 20 MG PO SCH (10:00)
[2020-03-14 12:21] VITALS: BP 146/65; PULSE 55; O2SAT 99
== END 2020-03-14 15:30 | disposition home or self-care (01) ==
LOC: ED 11:43 → MED SURG 14:30
PROVIDERS: ADMIT Family Medicine; ATTEND Family Medicine
DX: K56.7 Ileus, unspecified (principal); R11.10 Vomiting, unspecified; I10 Essential (primary) hypertension; E11.9 Type 2 diabetes mellitus without complications; E78.5 Hyperlipidemia, unspecified; Z79.899 Other long term (current) drug therapy
CPT/HCPCS: 36000; 36415; 74176; 80053; 81001; 82150; 82962; 83605; 83690; 85025; 96360; 96374; 96375; 99285; G0378; J1170; J2405; A9270-GY

== ENCOUNTER 2021-08-26 02:31 | Observation (INO) | payer MEDICARE, OTHER ==
--- NOTE | 2021-08-26 02:42 | ERPHSYRPT ---
- History of Present Illness Source: patient, EMS Exam Limitations: no limitations Timing/Duration: today Cough Quality/Degree: moderate, dry cough Possible Cause: no prior episodes Modifying Factors: Improves With: coughing Associated Symptoms: cough, shortness of breath Hx Tetanus, Diphtheria Vaccination/Date Given: Yes (up to date) Hx Influenza Vaccination/Date Given: Yes Hx Pneumococcal Vaccination/Date Given: Yes <CURT CHAU - Last Filed: 08/26/21 06:56> <LISSY LOONEY - Last Filed: 08/26/21 08:28> - History of Present Illness Time Seen by Provider: 08/26/21 02:39 Physician History: pt is 10 days or so after COvid diagnosis not requiring any additional covid measures and was doing well when she developed weakness and vomiting today without any abdominal pain or change in shortness of breath. No focal neurologic deficits. Denies CP but suspicious for cardiac with underlying SOBreath and new vomiting and having Covid as a risk factor. abd nontender, chest with rhonchi. (CURT CHAU) Allergies/Adverse Reactions: No Known Drug Allergies Allergy (Verified 08/26/21 02:52) Home Medications: Potassium Chloride 10 Meq Tab* [Klor Con 10 MEQ] 10 meq PO BID 10/09/12 [History] Pravastatin Sodium 20 mg PO HS 10/09/12 [History] Hydrochlorothiazide 25 mg [hydroDIURIL 25 MG] 25 mg PO DAILY 11/12/14 [History] Lisinopril 20 mg [Zestril 20 MG] 10 mg PO DAILY 08/08/17 [History] PANTOPRAZOLE 40 mg Tablet [Protonix 40MG Tablet] 40 mg PO QAM 03/13/20 [History] Amlodipine Besylate [Norvasc] 10 mg PO DAILY 08/26/21 [History] Tramadol HCl 50 mg [Ultram 50 mg] 50 mg PO Q8H PRN PRN 08/26/21 [History] - Review of Systems Constitutional: No Fever, No Chills Eyes: No Symptoms Ears, Nose, & Throat: No Symptoms Respiratory: Cough, Dyspnea Cardiac: No Chest Pain, No Edema, No Syncope Abdominal/Gastrointestinal: Nausea, Vomiting, No Abdominal Pain, No Diarrhea Genitourinary Symptoms: No Dysuria Musculoskeletal: No Back Pain, No Neck Pain Skin: No Rash Neurological: No Dizziness, No Focal Weakness, No Sensory Changes Psychological: No Symptoms Endocrine: No Symptoms Hematologic/Lymphatic: No Symptoms Immunological/Allergic: No Symptoms All Other Systems: Reviewed and Negative <CURT CHAU - Last Filed: 08/26/21 06:56> - Past Medical History Pertinent Past Medical History: Yes Neurological History: No Pertinent History ENT History: No Pertinent History Cardiac History: Hypertension Respiratory History: No Pertinent History Endocrine Medical History: Diabetes Type II Musculoskeletal History: No Pertinent History GI Medical History: Cirrhosis, GERD, Hernia History: No Pertinent History Psycho-Social History: No Pertinent History Female Reproductive Disorders: Abnormal Uterine Bleeding, Breast Cancer, Cervical Cancer, Other Other Medical History: BREAST CA- tx lumpectomy and radiation , UTERINE CA - Past Surgical History Past Surgical History: Yes Neuro Surgical History: No Pertinent History Cardiac: No Pertinent History Respiratory: No Pertinent History Gastrointestinal: Cholecystectomy, Hernia Repair Genitourinary: No Pertinent History Musculoskeletal: Orthopedic Surgery Female Surgical History: Lumpectomy, Hysterectomy Other Surgical History: tonsils as a child, left and right knee replacement. skin cancer removal to face, left thigh and back,left breast lumpectomy w/ radiation following, uterine cancer w/hyster., Confirms no lymph nodes removed - Social History Smoking Status: Never smoker Exposure to second hand smoke: No Alcohol Use: None Drug Use: none Patient Lives Alone: No Significant Family History: no pertinent family hx <CHAUCURTREBECCA GRAY - Last Filed: 08/26/21 06:56> - Physical Exam General Appearance: no apparent distress, alert Eye Exam: PERRL/EOMI, eyes nml inspection Ears, Nose, Throat Exam: normal ENT inspection, TMs normal, pharynx normal, moist mucous membranes Neck Exam: normal inspection, non-tender, supple, full range of motion Respiratory Exam: normal breath sounds, rhonchi, No respiratory distress, No stridor Cardiovascular Exam: regular rate/rhythm, normal heart sounds Gastrointestinal/Abdomen Exam: soft, No tenderness Pelvic Exam: deferred Rectal Exam: deferred Back Exam: normal inspection, No CVA tenderness, No vertebral tenderness Extremity Exam: normal inspection, normal range of motion Neurologic Exam: alert, oriented x 3, cooperative, normal mood/affect, sensation nml, No motor deficits Skin Exam: normal color, warm, dry, No rash Lymphatic Exam: No adenopathy SpO2 Interpretation: normal SpO2: 98 O2 Delivery: Room Air <CURT CHAU - Last Filed: 08/26/21 06:56> - Nursing Vital Signs Nursing Vital Signs: Initial Vital Signs Temperature 98.7 F 08/26/21 02:36 Pulse Rate 97 H 08/26/21 02:36 Respiratory Rate 18 08/26/21 02:36 Blood Pressure 157/72 08/26/21 02:36 O2 Sat by Pulse Oximetry 99 08/26/21 02:36 Pain Scale Pain Intensity 0 - Course Nursing assessment & vital signs reviewed: Yes EKG Interpreted by Me: Sinus Rhythm, Non-specific ST Changes, Other (poor r wave progression) - Radiology Exams Chest X-ray Interpretation: Reviewed by me, Infiltrates - CT Exams Abdomen/Pelvis CT Interpretation: Tele-radiologist Report, Other (partial SBO and chronic pancr eatitis/cirrhosis) <LAURA CHAUNETH MARINA - Last Filed: 08/26/21 06:56> Ordered Tests: Active Orders 24 hr Category Date Time Status Turn Machine Operator STAT Care 08/26/21 02:47 Active EKG-ER Only STAT Care 08/26/21 02:45 Active IV Insertion STAT Care 08/26/21 02:45 Active ABDOMEN AND PELVIS W/0 CONTRAS [CT] Stat Exams 08/26/21 04:27 Taken CHEST 1 VIEW (PORTABLE) Stat Exams 08/26/21 02:46 Taken AMYLASE Stat Lab 08/26/21 06:48 Completed BLOOD CULTURE Stat Lab 08/26/21 03:27 Received CBC W DIFF Stat Lab 08/26/21 03:04 Completed CMP Stat Lab 08/26/21 03:04 Completed D-DIMER QUANTITATIVE Stat Lab 08/26/21 03:04 Completed LIPASE Stat Lab 08/26/21 06:48 Completed Lactic Acid Stat Lab 08/26/21 02:50 Completed Lactic Acid Stat Lab 08/26/21 04:59 Completed NT PRO BNP Stat Lab 08/26/21 03:04 Completed PROCALCITONIN Stat Lab 08/26/21 Ordered PT INR [PROTIME WITH INR] Stat Lab 08/26/21 08:23 Ordered PTT Stat Lab 08/26/21 08:23 Ordered TROPONIN Q3H Lab 08/26/21 03:04 Completed TROPONIN Q3H Lab 08/26/21 05:45 Completed TROPONIN Q3H Lab 08/26/21 08:45 Ordered TROPONIN Q3H Lab 08/26/21 11:45 Ordered TROPONIN Q3H Lab 08/26/21 14:45 Ordered UA W/RFX UR CULTURE Stat Lab 08/26/21 02:46 Ordered Medication Summary Generic Name Dose Route Start Last Admin Trade Name Freq PRN Reason Stop Dose Admin Heparin Sodium (Beef Lung) 5,000 unit 08/26/21 08:22 Heparin 5000 Unit/0.5 Ml Syringe IV 08/26/21 08:23 STAT ONE Sodium Chloride 1,000 mls @ 100 mls/hr 08/26/21 02:45 08/26/21 02:59 Sodium Chloride 0.9% 1000 Ml IV 09/25/21 02:44 100 mls/hr .Q10H LEIDY Administration Heparin Sodium/Dextrose 25,000 units in 250 mls @ 10 mls/hr 08/26/21 08:30 Heparin 25,000 Units/D5w 250ml Premix IV 09/25/21 08:29 .Q24H LEIDY Discontinued Medications Generic Name Dose Route Start Last Admin Trade Name Freq PRN Reason Stop Dose Admin Diphenhydramine HCl 25 mg 08/26/21 04:16 08/26/21 04:28 Diphenhydramine Hcl 50 Mg/Ml Vial IV 08/26/21 04:17 25 mg STAT ONE Administration Diphenhydramine HCl Confirm 08/26/21 04:26 Diphenhydramine Hcl 50 Mg/Ml Vial Administered 08/26/21 04:27 Dose 50 mg .ROUTE .STK-MED ONE Ceftriaxone Sodium/Dextrose 1 g in 50 mls @ 100 mls/hr 08/26/21 03:13 08/26/21 05:28 Rocephin 1 Gm-D5w 50 Ml Bag IV 08/26/21 03:42 Infused STAT STA Infusion Ceftriaxone Sodium/Dextrose Confirm 08/26/21 03:33 Rocephin 1 Gm-D5w 50 Ml Bag Administered 08/26/21 03:34 Dose 1 g in 50 mls @ ud IV .STK-MED ONE Morphine Sulfate 4 mg 08/26/21 04:15 08/26/21 04:27 Morphine Sulfate 4 Mg/Ml Injection IV 08/26/21 04:16 4 mg STAT ONE Administration Morphine Sulfate Confirm 08/26/21 04:26 Morphine Sulfate 4 Mg/Ml Injection Administered 08/26/21 04:27 Dose 4 mg .ROUTE .STK-MED ONE Ondansetron HCl Confirm 08/26/21 03:47 Ondansetron Hcl 4 Mg/2 Ml Vial Administered 08/26/21 03:48 Dose 4 mg .ROUTE .STK-MED ONE Ondansetron HCl 4 mg 08/26/21 03:56 08/26/21 03:57 Ondansetron Hcl 4 Mg/2 Ml Vial IV 08/26/21 03:57 4 mg STAT ONE Administration Ondansetron HCl 4 mg 08/26/21 04:26 08/26/21 04:27 Ondansetron Hcl 4 Mg/2 Ml Vial IV 08/26/21 04:27 4 mg STAT ONE Administration Ondansetron HCl Confirm 08/26/21 04:26 Ondansetron Hcl 4 Mg/2 Ml Vial Administered 08/26/21 04:27 Dose 4 mg .ROUTE .STK-MED ONE Prochlorperazine Edisylate 10 mg 08/26/21 04:29 08/26/21 04:31 Prochlorperazine Edisylate 10 Mg/2 Ml Vial IM 08/26/21 04:30 10 mg STAT ONE Administration Prochlorperazine Edisylate Confirm 08/26/21 04:31 Prochlorperazine Edisylate 10 Mg/2 Ml Vial Administered 08/26/21 04:32 Dose 10 mg .ROUTE .STK-MED ONE Lab/Rad Data: Laboratory Result Diagrams 08/26/21 03:04 08/26/21 03:04 Laboratory Results 08/26/21 08/26/21 08/26/21 Range/Units 06:48 05:45 04:59 WBC (4.0-10.5) K/mm3 RBC (4.1-5.4) M/mm3 Hgb (12.0-16.0) gm/dl Hct (35-47) % MCV (78-100) fl MCH (26-32) pg MCHC (32-36) g/dl RDW (11.5-14.0) % Plt Count (150-450) K/mm3 MPV (7.5-11.0) fl Gran % (36.0-66.0) % Eos # (Auto) (0-0.5) Absolute Lymphs (auto) (1.0-4.6) Absolute Monos (auto) (0.0-1.3) Lymphocytes % (24.0-44.0) % Monocytes % (0.0-12.0) % Eosinophils % (0.00-5.0) % Basophils % (0.0-0.4) % Absolute Granulocytes (1.4-6.9) Basophils # (0-0.4) D-Dimer (215-500) ng/mL Sodium (137-145) mmol/L Potassium (3.5-5.1) mmol/L Chloride (98-107) mmol/L Carbon Dioxide (22-30) mmol/L Anion Gap (5-15) MEQ/L BUN (7-17) mg/dL Creatinine (0.52-1.04) mg/dL Estimated GFR ML/MIN Glucose (74-106) mg/dL Lactic Acid 1.5 (0.4-2.0) Calcium (8.4-10.2) mg/dL Total Bilirubin (0.2-1.3) mg/dL AST (14-36) U/L ALT (0-35) U/L Alkaline Phosphatase (38-126) U/L Troponin I < 0.012 (0.000-0.034) ng/mL NT-Pro-B Natriuret Pep (0-1800) pg/mL Serum Total Protein (6.3-8.2) g/dL Albumin (3.5-5.0) g/dL Amylase 58 (30-110) U/L Lipase 76 (23-300) U/L 08/26/21 08/26/21 08/26/21 Range/Units 03:04 03:04 03:04 WBC 19.8 H (4.0-10.5) K/mm3 RBC 5.71 H (4.1-5.4) M/mm3 Hgb 14.6 (12.0-16.0) gm/dl Hct 45.6 (35-47) % MCV 79.9 (78-100) fl MCH 25.6 L (26-32) pg MCHC 32.0 (32-36) g/dl RDW 17.0 H (11.5-14.0) % Plt Count 296 (150-450) K/mm3 MPV 13.4 H (7.5-11.0) fl Gran % 82.2 H (36.0-66.0) % Eos # (Auto) 0.13 (0-0.5) Absolute Lymphs (auto) 2.10 (1.0-4.6) Absolute Monos (auto) 1.27 (0.0-1.3) Lymphocytes % 10.6 L (24.0-44.0) % Monocytes % 6.4 (0.0-12.0) % Eosinophils % 0.7 (0.00-5.0) % Basophils % 0.1 (0.0-0.4) % Absolute Granulocytes 16.29 H (1.4-6.9) Basophils # 0.01 (0-0.4) D-Dimer 88339 H* (215-500) ng/mL Sodium 138 (137-145) mmol/L Potassium 4.6 (3.5-5.1) mmol/L Chloride 105 (98-107) mmol/L Carbon Dioxide 20 L (22-30) mmol/L Anion Gap 16.5 H (5-15) MEQ/L BUN 25 H (7-17) mg/dL Creatinine 1.73 H (0.52-1.04) mg/dL Estimated GFR 30.5 ML/MIN Glucose 209 H (74-106) mg/dL Lactic Acid (0.4-2.0) Calcium 9.9 (8.4-10.2) mg/dL Total Bilirubin 1.10 (0.2-1.3) mg/dL AST 23 (14-36) U/L ALT 15 (0-35) U/L Alkaline Phosphatase 123 (38-126) U/L Troponin I (0.000-0.034) ng/mL NT-Pro-B Natriuret Pep 298 (0-1800) pg/mL Serum Total Protein 7.9 (6.3-8.2) g/dL Albumin 4.3 (3.5-5.0) g/dL Amylase (30-110) U/L Lipase (23-300) U/L 08/26/21 08/26/21 Range/Units 03:04 02:50 WBC (4.0-10.5) K/mm3 RBC (4.1-5.4) M/mm3 Hgb (12.0-16.0) gm/dl Hct (35-47) % MCV (78-100) fl MCH (26-32) pg MCHC (32-36) g/dl RDW (11.5-14.0) % Plt Count (150-450) K/mm3 MPV (7.5-11.0) fl Gran % (36.0-66.0) % Eos # (Auto) (0-0.5) Absolute Lymphs (auto) (1.0-4.6) Absolute Monos (auto) (0.0-1.3) Lymphocytes % (24.0-44.0) % Monocytes % (0.0-12.0) % Eosinophils % (0.00-5.0) % Basophils % (0.0-0.4) % Absolute Granulocytes (1.4-6.9) Basophils # (0-0.4) D-Dimer (215-500) ng/mL Sodium (137-145) mmol/L Potassium (3.5-5.1) mmol/L Chloride (98-107) mmol/L Carbon Dioxide (22-30) mmol/L Anion Gap (5-15) MEQ/L BUN (7-17) mg/dL Creatinine (0.52-1.04) mg/dL Estimated GFR ML/MIN Glucose (74-106) mg/dL Lactic Acid 2.8 H (0.4-2.0) Calcium (8.4-10.2) mg/dL Total Bilirubin (0.2-1.3) mg/dL AST (14-36) U/L ALT (0-35) U/L Alkaline Phosphatase (38-126) U/L Troponin I < 0.012 (0.000-0.034) ng/mL NT-Pro-B Natriuret Pep (0-1800) pg/mL Serum Total Protein (6.3-8.2) g/dL Albumin (3.5-5.0) g/dL Amylase (30-110) U/L Lipase (23-300) U/L - Progress Progress: improved, re-examined Air Movement: good Blood Culture(s) Obtained: Yes Antibiotics given: Yes Discussed with Dr.: Other (Dr. Lott) Will see patient in: hospital (observation) Counseled pt/family regarding: lab results, diagnosis, need for follow-up, rad results <CURT CHAU - Last Filed: 08/26/21 06:56> - Progress Discussed with : Lazaro <LISSY LOONEY - Last Filed: 08/26/21 08:28> - Progress Progress Note: 08/26/21 04:28 Pt now has abd pain and some tenderness - will check CT 08/26/21 04:49 elevated d dimer present but unable to do CT PE due to low renal functions. 08/26/21 06:[address] Looney at change of shift after discussion of pending labs and studies for final diagnosis/Tx and disposition. (CURT CHAU) 08/26/21 08:23 patient is checked out to me at shift change from Dr. Sofia with pending lipase/amylase. Patient presented with vomiting and mild worsening shortness of breath from her baseline. She is currently saturating around 99% on 2 L. She has a white count of 19 with a lactate of 2.8 which is improved to 1.[address] abdomen pelvis showed finding consistent with partial small bowel obstruction and chronic pancreatitis but has normal lipase/amylase. She has a D-dimer around 20 K with chronic renal failure, cannot do CTA, does not have acute pancreatitis, discussed with Dr. Navarro and agreed with anticoagulating her and will obtain VQ scan later. She has received a dose of Rocephin and as per Dr. Navarro recommendation procalcitonin would be obtained. Patient has only one episode of vomiting while in the ER, will hold off on NG tube. We will keep her n.p.o. and IV hydration and is admitted to the floor. (LISSY LOONEY) <CURT CHAU - Last Filed: 08/26/21 06:56> - Departure Critical Care Time: No <LISSY LOONEY - Last Filed: 08/26/21 08:28> - Departure Clinical Impression: Small bowel obstruction, Elevated d-dimer Condition: Stable Referrals: FRANNIE POSEY [Primary Care Provider] - Follow up/PCP as directed
[2021-08-26] MEDS ORDERED: Sodium Chloride 0.9% 1000 ML 1,000 ML IV SCH ×2 (02:45→09:56)
[2021-08-26 03:08] LABS: Absolute Neutrophil Ct (ANC) 16.29 (1.4-6.9); BASOPHIL % 0.1 % (0.0-0.4); Basophil (Absolute #) 0.01 (0-0.4); Eosinophil % 0.7 % (0.00-5.0); Eosinophil (Absolute #) 0.13 (0-0.5); Hematocrit 45.6 % (35-47); Hemoglobin 14.6 gm/dl (12.0-16.0); Lymphocytes % 10.6 % (24.0-44.0); Mean Cell Volume 79.9 fl (78-100); Mean Corpuscular Hemoglobin 25.6 pg (26-32); Mean Platelet Volume 13.4 fl (7.5-11.0); Monocyte (Absolute #) 1.27 (0.0-1.3); Monocytes % 6.4 % (0.0-12.0); Neutrophil % 82.2 % (36.0-66.0); Platelet Count 296 K/mm3 (150-450); Red Blood Count 5.71 M/mm3 (4.1-5.4); White Blood Count 19.8 K/mm3 (4.0-10.5)
[2021-08-26] MEDS ORDERED: ROCEPHIN 1 Gm-D5w 50 ml Bag** 1 G/50 ML IVPB IV STA (03:13)
[2021-08-26 03:23] LABS: ALBUMIN 4.3 g/dL (3.5-5.0); ANION GAP 16.5 MEQ/L (5-15); BILIRUBIN,TOTAL 1.1 mg/dL (0.2-1.3); Calcium 9.9 mg/dL (8.4-10.2); Creatinine 1 1.73 mg/dL (0.52-1.04); EST GLOMERULAR FILTRATION RATE 30.5 ML/MIN; Potassium 4.6 mmol/L (3.5-5.1); Total Protein 7.9 g/dL (6.3-8.2)
[2021-08-26] MEDS ORDERED: ROCEPHIN 1 Gm-D5w 50 ml Bag** 1 G/50 ML IVPB IV ONE (03:33)
[2021-08-26] MEDS ORDERED: Zofran 4 MG/2 ML VIAL ONE ×2 (03:47→04:26)
[2021-08-26] MEDS ORDERED: Zofran 4 MG/2 ML VIAL IV ONE ×2 (03:56→04:26)
[2021-08-26] MEDS ORDERED: MORPHINE SULFATE 4 MG INJ IV ONE (04:15)
[2021-08-26] MEDS ORDERED: BENADRYL 50 MG/ML IV ONE (04:16)
[2021-08-26] MEDS ORDERED: BENADRYL 50 MG/ML ONE (04:26)
[2021-08-26] MEDS ORDERED: MORPHINE SULFATE 4 MG INJ ONE (04:26)
[2021-08-26] MEDS ORDERED: Compazine 10 MG/2 ML IM ONE (04:29)
[2021-08-26] MEDS ORDERED: Compazine 10 MG/2 ML ONE (04:31)
[2021-08-26 07:33] LABS: AMYLASE 58 U/L (30-110); LIPASE 76 U/L (23-300)
[2021-08-26] MEDS ORDERED: Heparin 5000 UNITS/0.5 ML (HIGH RISK MED) IV ONE (08:22)
--- NOTE | 2021-08-26 08:22 | XRAY ---
Indication: Umbilical pain, nausea, and vomiting 2 days. Multiple contiguous axial images obtained through the abdomen and pelvis without contrast. Comparison: March 13, 2020. Lung bases demonstrates minimal subsegmental atelectasis/scarring. No infiltrate or effusion.. No infiltrate or effusion. Heart not enlarged. Stable small hiatal hernia. Noncontrasted stomach unremarkable. Jejunal bowel loops are again abnormally fluid distended up to 3.8 cm in diameter with fluid leveling. Distal ileum and colon appear decompressed. Findings favor a distal small bowel obstruction. Again cirrhotic liver with now small perihepatic and pelvic ascites. Spleen is again enlarged today measuring 13 cm. Stable nonobstructing left renal punctate calculus, cholecystectomy, and hysterectomy. No walled off fluid collection or free air. Remaining liver, pancreas, spleen, adrenal glands, kidneys, ureters, and bladder are unremarkable for noncontrast exam. Again minimal aortoiliac calcifications without AAA. Osseous structures intact again with osteopenia and mild degenerative changes throughout the spine. Impression: 1. CT findings favoring distal small bowel obstruction. 2. Again cirrhotic liver and splenomegaly with new small abdominal/pelvic ascites. 3. Again incidental small hiatal hernia, nonobstructing left renal micro-calculus, and chronic bony findings. Comment: Preliminary interpretation made by [facility]. No critical discrepancy.
[2021-08-26 08:28] LABS: INR 1.01 (0.8-3.0); PROTIME 11.9 SECONDS (9.4-12.5)
[2021-08-26] MEDS ORDERED: Heparin 25,000 units/D5W 250ML PREMIX 25,000 UNITS/250 ML BAG IV SCH (08:30)
[2021-08-26 08:31] LABS: PTT 26.1 SECONDS (25.1-36.5)
[2021-08-26] MEDS ORDERED: Heparin 5000 UNITS/0.5 ML (HIGH RISK MED) ONE (08:34)
--- NOTE | 2021-08-26 08:34 | XRAY ---
Indication: Short of breath and vomiting. Positive Covid 19. Comparison: August 09, 2021. Portable chest demonstrates clearing of previous perihilar interstitial alveolar opacities. No focal infiltrate, consolidation, or large effusion. Heart not enlarged. No new/acute cardiopulmonary abnormalities.
[2021-08-26] MEDS ORDERED: HUMALOG SQ PRN (09:56)
[2021-08-26] MEDS ORDERED: MORPHINE SULFATE 2 MG INJ IV PRN (09:56)
[2021-08-26] MEDS ORDERED: Zofran 4 MG/2 ML VIAL IV PRN (09:56)
[2021-08-26] MEDS: Dextrose 5% -0.45 NaCl 1000 ML 1,000 ML IV SCH ×2 (11:42→18:12)
[2021-08-26] MEDS: PROTONIX 40 MG IV IV SCH (11:42)
[2021-08-26] MEDS: ENOXAPARIN SODIUM SQ SCH (11:43)
[2021-08-26 12:30] LABS: Appearance CLEAR (CLEAR); Bilirubin NEGATIVE (NEGATIVE); Blood NEGATIVE Ery/ul (0-5); Epithelial Cells RARE /HPF (FEW); Glucose NEGATIVE (NEGATIVE); Ketones TRACE (NEGATIVE); Leukocyte Esterase NEGATIVE (NEGATIVE); Mucus SLIGHT /HPF (NEGATIVE); Nitrite NEGATIVE (NEGATIVE); Protein,Urine Dip NEGATIVE (Negative); Specific Gravity 1.019 (1.005-1.025); Urobilinogen NEGATIVE mg/dL (0-1)
[2021-08-27] MEDS: Dextrose 5% -0.45 NaCl 1000 ML 1,000 ML IV SCH ×2 (01:01→07:29)
[2021-08-27 06:34] LABS: Absolute Neutrophil Ct (ANC) 6.05 (1.4-6.9); BASOPHIL % 0.1 % (0.0-0.4); Basophil (Absolute #) 0.01 (0-0.4); Eosinophil % 2.5 % (0.00-5.0); Eosinophil (Absolute #) 0.19 (0-0.5); Hematocrit 34.1 % (35-47); Hemoglobin 10.4 gm/dl (12.0-16.0); Lymphocyte (Absolute #) 0.83 (1.0-4.6); Lymphocytes % 11.1 % (24.0-44.0); Mean Cell Volume 83.6 fl (78-100); Mean Corpuscular Hemoglobin 25.5 pg (26-32); Mean Corpuscular Hgb Concent. 30.5 g/dl (32-36); Mean Platelet Volume 13.1 fl (7.5-11.0); Monocyte (Absolute #) 0.42 (0.0-1.3); Monocytes % 5.6 % (0.0-12.0); Neutrophil % 80.7 % (36.0-66.0); Platelet Count 135 K/mm3 (150-450); Red Blood Count 4.08 M/mm3 (4.1-5.4); Red Cell Distribution Width 16.2 % (11.5-14.0); White Blood Count 7.5 K/mm3 (4.0-10.5)
[2021-08-27 06:50] LABS: ANION GAP 11.4 MEQ/L (5-15); BILIRUBIN,TOTAL 0.5 mg/dL (0.2-1.3); Calcium 7.8 mg/dL (8.4-10.2); Creatinine 1 1.35 mg/dL (0.52-1.04); EST GLOMERULAR FILTRATION RATE 40.6 ML/MIN; Potassium 3.8 mmol/L (3.5-5.1); Total Protein 5.8 g/dL (6.3-8.2)
[2021-08-27] MEDS: PROTONIX 40 MG IV IV SCH (09:04)
[2021-08-27] MEDS: ENOXAPARIN SODIUM SQ SCH (09:04)
[2021-08-27] MEDS ORDERED: TYLENOL 325 MG PO PRN (23:39)
[2021-08-28 05:25] LABS: Hematocrit 30.7 % (35-47); Hemoglobin 9.6 gm/dl (12.0-16.0); Mean Cell Volume 82.7 fl (78-100); Mean Corpuscular Hemoglobin 25.9 pg (26-32); Mean Corpuscular Hgb Concent. 31.3 g/dl (32-36); Platelet Count 99 K/mm3 (150-450); Red Blood Count 3.71 M/mm3 (4.1-5.4); White Blood Count 4.7 K/mm3 (4.0-10.5)
[2021-08-28 06:49] LABS: ALBUMIN 2.8 g/dL (3.5-5.0); ANION GAP 9.9 MEQ/L (5-15); BILIRUBIN,TOTAL 0.5 mg/dL (0.2-1.3); Creatinine 1 1.32 mg/dL (0.52-1.04); EST GLOMERULAR FILTRATION RATE 41.7 ML/MIN; Potassium 3.8 mmol/L (3.5-5.1); Total Protein 5.6 g/dL (6.3-8.2)
[2021-08-28 07:35] VITALS: BP 135/66; PULSE 68
[2021-08-28 08:09] VITALS: O2SAT 97
--- NOTE | 2021-08-28 10:42 | HP ---
CHIEF COMPLAINT: Nausea and vomiting. HISTORY OF PRESENT ILLNESS: The patient is a 76-year-old white female who presented to the emergency room with the above complaint. She reports she had a small bowel movement yesterday but it has been several days since she had a normal bowel movement. The patient did have a positive COVID test back on 08/09/2021 but has not had any trouble with shortness of breath at all and her O2 saturations are running currently 97% on room air. PAST MEDICAL/SURGICAL HISTORY: Significant for diabetes mellitus type II, hypertension, previous history of cirrhosis, gastroesophageal reflux disease, hernia repair. The patient reports that she did have hysterectomy done for primary uterine cancer, lumpectomy. She has had breast cancer treatments, lumpectomy and radiation as well. HOME MEDICATIONS: Vitamin D3 at 5,000 units daily, amlodipine 10 mg a day, HydroDIURIL 25 mg daily, lisinopril 20 mg daily, melatonin 5 mg a night for sleep, pantoprazole 40 mg, potassium 10 mEq twice a day, pravastatin 20 mg at night, tramadol 50 mg every 8 hours PRN for pain. ALLERGIES: NKDA. PHYSICAL EXAMINATION: The patient's vital signs in the emergency room showed her temperature 98.7F, pulse 97, respiratory rate 18 and blood pressure 157/72. O2 saturation 99%. HEENT: Normocephalic, atraumatic. Pupils equal round reactive to light. Extraocular movements intact. Oropharynx is dry. NECK: Supple without lymphadenopathy, thyromegaly or JVD. CHEST: Essentially clear to auscultation. HEART: Regular rate and rhythm without murmurs, rubs or gallops. ABDOMEN: Soft, slightly tender. No palpable masses were felt. Bowel sounds felt to be hypoactive. NEUROLOGIC: She is alert and oriented x3 without any focal deficits. LAB DATA AND TESTS: Her laboratory studies revealed x-rays which were consistent with what appeared to be partial small bowel obstruction, cirrhosis of liver, splenomegaly and new small abdominal/pelvic ascites. She had chest x-rays which were essentially felt to be with no focal infiltrate, consolidation or effusions. The patient's labs otherwise showed troponin to be less than 0.012. Her INR was 1.01. Procalcitonin was slightly elevated at 0.113. She had amylase and lipase which were felt to be normal. Her white blood count was 19.8 with slight left shift 82.2. Hemoglobin 45.6, PLT count 296,000. Lactic acid was slightly elevated at 2.8 initially and was 1.5 after fluid treatments. Her EKG essentially showed sinus rhythm and was essentially normal otherwise. ASSESSMENT: A patient with possible small bowel obstruction. I do not believe this is COVID related although the patient was placed in the COVID unit due to her recent within the last 30 days positive test. The patient has been made NPO. We will get a surgical consultation. She was given IV fluids of D5 half normal saline at 125 cc/hour. If the patient has further vomiting will consider placing an NG tube for decompressing the gut and otherwise being placed at bowel rest. We will hold all of her medications except the Protonix which we will give IV. Recheck her white blood cell count and procalcitonin level as a possibility for bacterial infection is present.
--- NOTE | 2021-08-28 11:23 | CONS ---
CONSULT DATE: 08/26/2021 HISTORY: The patient is seen and examined Jr Day at [facility] in the COVID Unit. She is alert and oriented. Consult was for small bowel obstruction. A lot of this diagnosis was from the CT scan which suggested partial small bowel obstruction. It sounds like she is doing pretty well per the nursing staff. When walking in the room, walking up to the patient at first examined her belly. PHYSICAL EXAMINATION: The abdomen was clearly distended and just a little firm and not quite right. The patient is alert and oriented. She had been voiding satisfactorily. She had not been passing gas. IMPRESSION: This is a significant small bowel obstruction. IV fluids, GI rest, observation, re-examination is in order. We will check her again on 08/27/2021.
--- NOTE | 2021-08-28 13:07 | PROG NOTE ---
DATE: 08/27/2021 HISTORY: The patient was admitted for bowel obstruction yesterday. She has had a COVID vaccine and had positive test for COVID seven or eight days ago. I do not thinks she is nauseated or vomiting. No bowel movement for quite a while. She was seen by Dr. Armaan Navarro and Dr. Junito Nash also saw her. We restricted her diet, continued her oral medications. Today, she states she feels much better and can actually drink. She had good urinary output. There are some bowel sounds. PHYSICAL EXAMINATION: ABDOMEN: Soft. No tenderness. IMPRESSION: The patient has had a small bowel obstruction with ileus. She is improving. Will offer her clear liquids until Dr. Nash sees her later on during the day. Really she is not infectious from the COVID. She had that long ago although she is here on the unit she is probably not infectious from the COVID. PROGNOSIS: Good.
--- NOTE | 2021-08-28 13:18 | PROG NOTE ---
DATE: 08/27/2021 HISTORY: I saw her on 08/25/2021 with bilateral COVID pneumonia, history of lung cancer supposedly cured. She had deteriorated on 08/26/2021 and today she is short of breath on BiPAP. However, her O2 with that is up in the 90's. She finds it difficult to breathe with it but we explained to her that is probably better that she be on high-flow probably better than BiPAP. We elected to give her a little bit of Ativan to try to help her anxiety. We told her she did not have to breathe as fast to keep up with it. She could breathe whatever rate she wanted to. Other problems: Atrial fibrillation but we will not be able to convert that due to her severe lung disease but she is on Cardizem drip which has got it controlled under 100. Her blood pressure is okay. PHYSICAL EXAMINATION: O2 saturation 97% with high flow. CHEST: Crackles bilateral. Wheezing slightly.CVS: Heart sounds normal. LAB DATA AND TESTS: Discontinued the antibiotics as she has no signs of bacterial pneumonia. She has typical COVID. Bilateral infiltrates, normal white count. Glucose 153. Yesterday, creatinine 1.35. Her sodium 137, creatinine has been elevated in the past she states. Liver enzymes are always a little bit elevated. Procalcitonin for some reason minimally elevated. IMPRESSION: The patient has bilateral COVID pneumonia with rather severe underlying lung disease, plus lung resection for lung cancer. She is very anxious and fighting the high flow. Will add a little bit of Ativan, continue same medications to control her atrial fibrillation and her bilateral COVID pneumonia.
== END 2021-08-28 10:25 | disposition home or self-care (01) ==
LOC: ED 02:31 → MED SURG 09:45
PROVIDERS: ADMIT Family Medicine; ATTEND Family Medicine
DX: U07.1 COVID-19 (principal); K56.609 Unspecified intestinal obstruction, unspecified as to partial versus complete obstruction; R79.89 Other specified abnormal findings of blood chemistry; E11.9 Type 2 diabetes mellitus without complications; I10 Essential (primary) hypertension; K21.9 Gastro-esophageal reflux disease without esophagitis; J12.82 Pneumonia due to coronavirus disease 2019; I48.91 Unspecified atrial fibrillation; Z79.899 Other long term (current) drug therapy
CPT/HCPCS: 36000; 36415; 71045; 74176; 80053; 81001; 82150; 82947; 83605; 83690; 83880; 84145; 84484; 85025; 85027; 85379; 85610; 85730; 87040; 93005; 93041; 93268; 94762; 96360; 96365; 96372; 96374; 96375; 99285; G0378; J0696; J1200; J1644; J1650; J2270; J2405; A9270-GY

== ENCOUNTER 2024-12-15 10:37 | Day surgery (SDC) | payer MEDICARE, OTHER ==
[2024-12-15] MEDS ORDERED: Lactated Ringers 1,000 ML IV ONE (11:42)
[2024-12-15] MEDS: Lactated Ringers 1,000 ML IV SCH (11:44)
[2024-12-15] MEDS: TETRACAINE 0.5% STERI-UNIT SOL OP ONE ×2 (11:48→12:17)
[2024-12-15] MEDS: Ak-Dilate OPHTHALMIC*** 0.71 ML, Cyclogyl 1% OPHTH SOL 0.71 ML, GATIFLOXACIN 0.5% OPHTH... OP SCH (11:50)
[2024-12-15 12:27] LABS: ANION GAP 13.6 MEQ/L (5-15); Calcium 8.9 mg/dL (8.4-10.2); Creatinine 1 1.51 mg/dL (0.52-1.04); EST GLOMERULAR FILTRATION RATE 35.2 ML/MIN; Potassium 4.3 mmol/L (3.5-5.1)
[2024-12-15] MEDS ORDERED: VIGAMOX/BSS 0.15% SYR IO NR (13:00)
[2024-12-15] MEDS ORDERED: DEXMEDETOMIDINE 80 MCG/20ML-NS IV NR (13:00)
[2024-12-15] MEDS ORDERED: DEXTENZA OP NR (13:00)
[2024-12-15] MEDS ORDERED: BETADINE 5% OPHTHALMIC 30 ML OP NR (13:00)
[2024-12-15] MEDS ORDERED: TRIAMCINOLONE 15 MG/ML INJ INTRAOP NR (13:00)
[2024-12-15] MEDS ORDERED: Epinephrine Preservative Free 1 MG/ML INTRAOP NR (13:00)
[2024-12-15] MEDS ORDERED: Zofran 4 MG/2 ML VIAL IV PRN (13:15)
[2024-12-15] MEDS ORDERED: Versed 2 MG/2 ML Injection ONE (14:07)
[2024-12-15] MEDS ORDERED: propofoL IV ONE ×2 (14:07→14:38)
[2024-12-15] MEDS ORDERED: Zofran 4 MG/2 ML VIAL ONE (14:07)
[2024-12-15] MEDS ORDERED: SUBLIMAZE 100 MCG/2 ML ONE (14:07)
[2024-12-15 14:49] VITALS: RESP 18
[2024-12-15] MEDS: ACETAZOLAMIDE 250 MG TABLET PO ONE (14:55)
[2024-12-15 15:01] VITALS: BP 143/87; PULSE 67; TEMP 97.4; O2SAT 97
== END 2024-12-15 15:10 | disposition home or self-care (01) ==
LOC: SDC 10:37
PROVIDERS: ATTEND Ophthalmology
DX: H25.811 Combined forms of age-related cataract, right eye (principal); Z96.1 Presence of intraocular lens; H40.1110 Primary open-angle glaucoma, right eye, stage unspecified; I10 Essential (primary) hypertension
CPT/HCPCS: 36415; 65820; 68841; 80048; 93005; 99100; C1780; J0171; J1096; J2250; J2405; J2704; J3010; A9270-GY

== ENCOUNTER 2025-01-19 08:46 | Day surgery (SDC) | payer MEDICARE, OTHER ==
[2025-01-19] MEDS ORDERED: Lactated Ringers 1,000 ML IV ONE (08:59)
[2025-01-19] MEDS: TETRACAINE 0.5% STERI-UNIT SOL OP ONE ×2 (09:15→09:30)
[2025-01-19] MEDS: Ak-Dilate OPHTHALMIC*** 0.71 ML, Cyclogyl 1% OPHTH SOL 0.71 ML, GATIFLOXACIN 0.5% OPHTH... OP SCH (09:16)
[2025-01-19 09:18] VITALS: RESP 16
[2025-01-19] MEDS: Lactated Ringers 1,000 ML IV SCH (09:21)
[2025-01-19] MEDS ORDERED: VIGAMOX/BSS 0.15% SYR IO NR (11:00)
[2025-01-19] MEDS ORDERED: DEXMEDETOMIDINE 80 MCG/20ML-NS IV NR (11:00)
[2025-01-19] MEDS ORDERED: TRIAMCINOLONE 15 MG/ML INJ INTRAOP NR (11:00)
[2025-01-19] MEDS ORDERED: BETADINE 5% OPHTHALMIC 30 ML OP NR (11:00)
[2025-01-19] MEDS ORDERED: DEXTENZA OP NR (11:00)
[2025-01-19] MEDS ORDERED: OMIDRIA 1-0.3% VIAL IO NR (11:00)
[2025-01-19] MEDS ORDERED: Zofran 4 MG/2 ML VIAL IV PRN (11:15)
[2025-01-19] MEDS ORDERED: Versed 2 MG/2 ML Injection ONE (12:06)
[2025-01-19] MEDS ORDERED: SUBLIMAZE 100 MCG/2 ML ONE (12:07)
[2025-01-19] MEDS ORDERED: propofoL IV ONE (12:22)
[2025-01-19] MEDS: ACETAZOLAMIDE 250 MG TABLET PO ONE (12:48)
[2025-01-19 12:51] VITALS: PULSE 70
[2025-01-19 12:58] VITALS: BP 124/69; O2SAT 97
[2025-01-19 13:10] VITALS: TEMP 96.9
== END 2025-01-19 13:09 | disposition home or self-care (01) ==
LOC: SDC 08:46
PROVIDERS: ATTEND Ophthalmology
DX: H25.812 Combined forms of age-related cataract, left eye (principal)
CPT/HCPCS: 65820; C1780; J1096; J1097; J2250; J2704; J3010; A9270-GY